=== PATIENT | male | born 1955 | race African-American/Black ===

== ENCOUNTER 2018-02-28 17:38 | Emergency (ER) | payer OTHER ==
[~2018-02-28] VITALS: Ht 175.3 cm; Wt 75.0 kg
[2018-02-28 18:53] LABS: BASOPHILS % (AUTO) 0.2 % (0-1); EOSINOPHILS # (AUTO) 0.2 X10'3 (0-0.9); EOSINOPHILS % (AUTO) 1.3 % (0-6); HEMATOCRIT 43.3 % (42.0-52.0); LYMPHOCYTES % (AUTO) 8.3 % (21-51); MEAN CORPUSCULAR HGB CONC 34.5 % (33.0-36.5); MEAN CORPUSCULAR VOLUME 89.7 FL (78-98); MEAN PLATELET VOLUME 7.6 FL (7.4-10.4); MONOCYTES # (AUTO) 0.9 X10'3 (0-0.9); MONOCYTES % (AUTO) 7.1 % (2-12); NEUTROPHILS # (AUTO) 10.1 X10'3 (1.8-7.7); NEUTROPHILS % (AUTO) 83.1 % (42-75); PLATELET COUNT 226 X10'3 (140-440); RED BLOOD COUNT 4.83 X10'6 (4.70-6.10); RED CELL DISTRIBUTION WIDTH 13.7 % (11.5-14.5); WHITE BLOOD COUNT 12.1 X10'3 (4.5-11.0)
[2018-02-28 19:09] LABS: ALANINE AMINOTRANSFERASE 57 U/L (12-78); ALBUMIN 3.8 G/DL (3.4-5.0); ALBUMIN/GLOBULIN RATIO 0.8 (1.1-1.5); ALKALINE PHOSPHATASE 95 IU/L (46-116); ANION GAP 8 (8-16); ASPARTATE AMINO TRANSFERASE 38 U/L (10-37); BILIRUBIN,TOTAL 0.7 MG/DL (0.1-1.0); BLOOD UREA NITROGEN 23 MG/DL (7-18); CALCIUM 9.2 MG/DL (8.5-10.1); CHLORIDE 108 MMOL/L (99-107); CREATININE 1.28 MG/DL (0.60-1.10); GLUCOSE 81 MG/DL (70-104); POTASSIUM 4.2 MMOL/L (3.5-5.1); SODIUM 144 MMOL/L (135-145); TOTAL CARBON DIOXIDE 27.7 MMOL/L (24-32); TOTAL PROTEIN 8.3 G/DL (6.4-8.2); eGFR 69 ML/MIN
[2018-02-28 19:21] LABS: CKMB RELATIVE INDEX 0.7 RATIO (0-2.5); CREATINE KINASE 201 U/L (39-308); ETHANOL < 0.010 GM/DL (0.0-0.010); MAGNESIUM 2.1 MG/DL (1.5-2.4)
[2018-02-28 20:07] VITALS: BP 154/72
== END 2018-02-28 20:09 | disposition home or self-care (01) ==
LOC: ER 17:38
DX: E86.0 Dehydration (principal); T67.5XXA Heat exhaustion, unspecified, initial encounter; Z88.0 Allergy status to penicillin; Y92.9 Unspecified place or not applicable
CPT/HCPCS: 36415; 80053; 80320; 82550; 82553; 83735; 84484; 85025; 93005; 99285

== ENCOUNTER 2020-11-25 20:00 | Emergency (ER) | payer OTHER ==
[~2020-11-25] VITALS: Ht 175.3 cm; Wt 78.2 kg
[2020-11-25 20:46] LABS: BASOPHILS % (AUTO) 0.5 % (0-1); EOSINOPHILS # (AUTO) 0.1 X10'3 (0-0.9); HEMOGLOBIN 14.9 g/dl (14.0-17.9); LYMPHOCYTES # (AUTO) 2.1 X10'3 (1.1-4.8); LYMPHOCYTES % (AUTO) 33.7 % (21-51); MEAN CORPUSCULAR HEMOGLOBIN 30.2 PG (27.0-31.0); MEAN CORPUSCULAR HGB CONC 33.8 g/dL (33.0-36.5); MEAN CORPUSCULAR VOLUME 89.3 FL (78-98); MEAN PLATELET VOLUME 7.7 FL (7.4-10.4); MONOCYTES # (AUTO) 0.6 X10'3 (0-0.9); MONOCYTES % (AUTO) 10.3 % (2-12); NEUTROPHILS # (AUTO) 3.3 X10'3 (1.8-7.7); NEUTROPHILS % (AUTO) 53.5 % (42-75); PLATELET COUNT 241 X10'3 (140-440); RED BLOOD COUNT 4.93 X10'6 (4.70-6.10); RED CELL DISTRIBUTION WIDTH 13.6 % (11.5-14.5); WHITE BLOOD COUNT 6.2 X10'3 (4.5-11.0)
[2020-11-25 20:55] LABS: ALANINE AMINOTRANSFERASE 54 U/L (12-78); ALBUMIN 3.7 G/DL (3.4-5.0); ALBUMIN/GLOBULIN RATIO 0.8 (1.1-1.5); ALKALINE PHOSPHATASE 96 IU/L (46-116); ANION GAP 10 (8-16); ASPARTATE AMINO TRANSFERASE 41 U/L (10-37); BILIRUBIN,TOTAL 0.4 MG/DL (0.1-1.0); BLOOD UREA NITROGEN 25 MG/DL (7-18); BUN/CREATININE RATIO 23.1 (5.4-32.0); CALCIUM 9.2 MG/DL (8.5-10.1); CHLORIDE 105 MMOL/L (99-107); CREATININE 1.08 MG/DL (0.60-1.10); GLUCOSE 95 MG/DL (70-104); LIPASE 72 U/L (73-393); POTASSIUM 3.9 MMOL/L (3.5-5.1); SODIUM 140 MMOL/L (135-145); TOTAL CARBON DIOXIDE 25.5 MMOL/L (24-32); TOTAL PROTEIN 8.5 G/DL (6.4-8.2); eGFR 83 ML/MIN
[2020-11-25 21:26] LABS: CLARITY,URINE CLEAR (Clear); COLOR,URINE YELLOW (Yellow); GLUCOSE, URINE NEGATIVE (Neg); KETONES,URINE NEGATIVE (Neg); LEUKOCYTE ESTERASE ,URINE NEGATIVE (Neg); NITRITES, URINE NEGATIVE (Neg); OCCULT BLOOD,URINE NEGATIVE (Neg); PROTEIN,URINE NEGATIVE (Neg); UROBILINOGEN,URINE 0.2 E.U/dL (0.2-1.0)
[2020-11-25 21:29] LABS: UA COLLECTION TYPE CLN CATCH MIDSTREAM
[2020-11-25 23:18] VITALS: BP 150/101
== END 2020-11-25 23:32 | disposition home or self-care (01) ==
LOC: ER 20:00
DX: R10.84 Generalized abdominal pain (principal); Z88.0 Allergy status to penicillin
CPT/HCPCS: 36415; 80053; 81003; 83690; 85025; 99283

== ENCOUNTER 2021-04-25 15:12 | Emergency (ER) | payer MEDICAID ==
[~2021-04-25] VITALS: Ht 175.3 cm; Wt 75.0 kg
[2021-04-25 15:37] VITALS: BP 142/75
[2021-04-25] MEDS ORDERED: FLUT1DIS INH (16:17)
[2021-04-25] MEDS ORDERED: ALBU8.5H17 INH (16:17)
== END 2021-04-25 17:09 | disposition home or self-care (01) ==
LOC: ER 15:12
DX: J44.9 Chronic obstructive pulmonary disease, unspecified (principal); R06.02 Shortness of breath; F17.200 Nicotine dependence, unspecified, uncomplicated; Z72.89 Other problems related to lifestyle; Z56.0 Unemployment, unspecified; Z59.0 Homelessness; Z88.0 Allergy status to penicillin; Z79.899 Other long term (current) drug therapy
CPT/HCPCS: 99283

== ENCOUNTER 2021-05-03 18:02 | Emergency (ER) | payer MEDICAID ==
[~2021-05-03] VITALS: Ht 175.3 cm; Wt 75.0 kg
[~2021-05-03 18:02] MED LIST: ALBU8.5H17 INH; FLUT1DIS INH
[2021-05-03] MEDS ORDERED: nitroGLYCERIN 0.4mg SUBLingual tab SL ONE (18:40)
[2021-05-03] MEDS ORDERED: albuterol 2.5 MG/3 ML nebule NEB ONE (18:40)
[2021-05-03] MEDS ORDERED: methylPREDNISolone sod succ 125mg/2ml vial IV ONE (18:40)
[2021-05-03 18:46] LABS: BASOPHILS % (AUTO) 0.4 % (0-1); EOSINOPHILS # (AUTO) 0.2 X10'3 (0-0.9); EOSINOPHILS % (AUTO) 4.1 % (0-6); HEMATOCRIT 35.3 % (42.0-52.0); HEMOGLOBIN 12.2 g/dl (14.0-17.9); LYMPHOCYTES # (AUTO) 1.3 X10'3 (1.1-4.8); LYMPHOCYTES % (AUTO) 23.9 % (21-51); MEAN CORPUSCULAR HEMOGLOBIN 31.3 PG (27.0-31.0); MEAN CORPUSCULAR HGB CONC 34.6 g/dL (33.0-36.5); MEAN CORPUSCULAR VOLUME 90.4 FL (78-98); MEAN PLATELET VOLUME 7.6 FL (7.4-10.4); MONOCYTES # (AUTO) 0.6 X10'3 (0-0.9); MONOCYTES % (AUTO) 10.3 % (2-12); NEUTROPHILS # (AUTO) 3.4 X10'3 (1.8-7.7); NEUTROPHILS % (AUTO) 61.3 % (42-75); PLATELET COUNT 227 X10'3 (140-440); RED CELL DISTRIBUTION WIDTH 13.4 % (11.5-14.5); WHITE BLOOD COUNT 5.6 X10'3 (4.5-11.0)
[2021-05-03 19:06] LABS: D-DIMER 1.09 MG/L FEU (0-0.50)
[2021-05-03 19:09] LABS: ALANINE AMINOTRANSFERASE 73 U/L (12-78); ALBUMIN/GLOBULIN RATIO 0.7 (1.1-1.5); ALKALINE PHOSPHATASE 84 IU/L (46-116); ANION GAP 9 (8-16); ASPARTATE AMINO TRANSFERASE 51 U/L (10-37); BILIRUBIN,TOTAL 0.5 MG/DL (0.1-1.0); BLOOD UREA NITROGEN 21 MG/DL (7-18); BUN/CREATININE RATIO 17.2 (5.4-32.0); CALCIUM 8.3 MG/DL (8.5-10.1); CHLORIDE 110 MMOL/L (99-107); CREATININE 1.22 MG/DL (0.60-1.10); GLUCOSE 97 MG/DL (70-104); POTASSIUM 3.3 MMOL/L (3.5-5.1); SODIUM 145 MMOL/L (135-145); TOTAL CARBON DIOXIDE 25.9 MMOL/L (24-32); TOTAL PROTEIN 7.1 G/DL (6.4-8.2); eGFR 72 ML/MIN
[2021-05-03] MEDS ORDERED: iohexol 350MG/ML 100ml bottle IV ONE (19:27)
[2021-05-03] MEDS ORDERED: POTASSIUM BICARB 20meq eff tab 20 MEQ TABLET.EFF PO ONE (20:35)
[2021-05-03 22:12] LABS: CLARITY,URINE CLEAR (Clear); COLOR,URINE DARK YELLOW (Yellow); PROTEIN,URINE 30 mg/dl (Neg); UA COLLECTION TYPE URINAL
[2021-05-03 22:13] LABS: GLUCOSE, URINE NEGATIVE (Neg); KETONES,URINE NEGATIVE (Neg); LEUKOCYTE ESTERASE ,URINE NEGATIVE (Neg); NITRITES, URINE NEGATIVE (Neg); OCCULT BLOOD,URINE NEGATIVE (Neg); UROBILINOGEN,URINE 0.2 E.U/dL (0.2-1.0)
[2021-05-03 22:19] LABS: BACTERIA,URINE NONE SEEN /HPF (Neg); HYALINE CASTS 0-3 /LPF (NEGATIVE); MUCUS STRANDS MODERATE /LPF (Neg); RBC,URINE NONE SEEN /HPF (0-2); SPERM FEW /HPF (NEGATIVE); SQUAMOUS EPITHELIAL CELL,UR NONE SEEN /LPF (FEW); WBC,URINE 0-4 /HPF (0-4)
[2021-05-03 22:38] LABS: URINE AMPHETAMINE SCREEN POSITIVE (Neg); URINE BARBITUATE SCREEN NEGATIVE (Neg); URINE BENZODIAZEPINES SCREEN NEGATIVE (Neg); URINE CANNABINOID SCREEN NEGATIVE (Neg); URINE COCAINE SCREEN NEGATIVE (Neg); URINE METHADONE SCREEN NEGATIVE (Neg); URINE OPIATE SCREEN NEGATIVE (Neg); URINE PHENCYCLIDINE SCREEN NEGATIVE (Neg)
[2021-05-03] MEDS ORDERED: PRED10TA23 PO (22:48)
[2021-05-03 23:11] VITALS: BP 136/81
== END 2021-05-03 23:12 | disposition home or self-care (01) ==
LOC: ER 18:02
DX: J44.1 Chronic obstructive pulmonary disease with (acute) exacerbation (principal); I10 Essential (primary) hypertension; Z56.0 Unemployment, unspecified; Z59.0 Homelessness; Z88.0 Allergy status to penicillin; Z79.899 Other long term (current) drug therapy; Z20.822 Contact with and (suspected) exposure to COVID-19
CPT/HCPCS: 36415; 71045; 71275; 80053; 80305; 81001; 83880; 84484; 85025; 85379; 87635; 93005; 94640; 96374; 99285; C9803; J2930; Q9967; 94760

== ENCOUNTER 2021-07-08 15:08 | Inpatient (IN) | payer MEDICAID, OTHER ==
[~2021-07-08] VITALS: Ht 172.7 cm; Wt 70.9 kg
[2021-07-08] MEDS ORDERED: aspirin 81mg tab.chew PO ONE (15:25)
[2021-07-08] MEDS ORDERED: nitroGLYCERIN 0.4mg SUBLingual tab SL PRN ×2 (15:25→20:35)
[2021-07-08 15:37] LABS: BASOPHILS % (AUTO) 0.6 % (0-1); EOSINOPHILS # (AUTO) 0.4 X10'3 (0-0.9); EOSINOPHILS % (AUTO) 7.9 % (0-6); HEMATOCRIT 41.2 % (42.0-52.0); HEMOGLOBIN 14.2 g/dl (14.0-17.9); LYMPHOCYTES # (AUTO) 1.4 X10'3 (1.1-4.8); LYMPHOCYTES % (AUTO) 27.9 % (21-51); MEAN CORPUSCULAR HEMOGLOBIN 30.9 PG (27.0-31.0); MEAN CORPUSCULAR HGB CONC 34.4 g/dL (33.0-36.5); MEAN CORPUSCULAR VOLUME 89.7 FL (78-98); MEAN PLATELET VOLUME 7.8 FL (7.4-10.4); MONOCYTES # (AUTO) 0.6 X10'3 (0-0.9); MONOCYTES % (AUTO) 10.9 % (2-12); NEUTROPHILS # (AUTO) 2.7 X10'3 (1.8-7.7); NEUTROPHILS % (AUTO) 52.7 % (42-75); PLATELET COUNT 216 X10'3 (140-440); RED BLOOD COUNT 4.59 X10'6 (4.70-6.10); RED CELL DISTRIBUTION WIDTH 12.9 % (11.5-14.5); WHITE BLOOD COUNT 5.2 X10'3 (4.5-11.0)
[2021-07-08 15:40] LABS: D-DIMER 1.13 MG/L FEU (0-0.50)
[2021-07-08 15:47] LABS: ALANINE AMINOTRANSFERASE 60 U/L (12-78); ALBUMIN 3.8 G/DL (3.4-5.0); ALBUMIN/GLOBULIN RATIO 0.9 (1.1-1.5); ALKALINE PHOSPHATASE 81 IU/L (46-116); ANION GAP 6 (8-16); ASPARTATE AMINO TRANSFERASE 41 U/L (10-37); BILIRUBIN,TOTAL 0.7 MG/DL (0.1-1.0); BLOOD UREA NITROGEN 14 MG/DL (7-18); BUN/CREATININE RATIO 10.9 (5.4-32.0); CALCIUM 8.8 MG/DL (8.5-10.1); CHLORIDE 105 MMOL/L (99-107); CREATININE 1.28 MG/DL (0.60-1.10); GLUCOSE 81 MG/DL (70-104); POTASSIUM 4.3 MMOL/L (3.5-5.1); SODIUM 141 MMOL/L (135-145); TOTAL CARBON DIOXIDE 30.1 MMOL/L (24-32); TOTAL PROTEIN 8.1 G/DL (6.4-8.2); eGFR 68 ML/MIN
[2021-07-08 15:52] LABS: MAGNESIUM 2.1 MG/DL (1.5-2.4)
[2021-07-08] MEDS ORDERED: normal saline 1000ML IV soln IVB ONE (16:15)
[2021-07-08 16:17] LABS: CHOL/HDL RATIO 2.7 (0.00-4.99); CHOLESTEROL 110 MG/DL (0-200); HDL CHOLESTEROL 41 MG/DL (35-60); LDL CHOLESTEROL 54 MG/DL (50-100); TRIGLYCERIDES 100 MG/DL (20-135)
[2021-07-08] MEDS ORDERED: iohexol 350MG/ML 100ml bottle IV ONE (16:48)
[2021-07-08 19:00] VITALS: BP 121/65
[2021-07-08] MEDS ORDERED: aminophylline 250mg/10ml inj. IV PRN (20:35)
[2021-07-08] MEDS ORDERED: magnesium Cl slow-release 64mg tablet PO PRN (20:35)
[2021-07-08] MEDS ORDERED: potassium CL 10mEq/100ml bag 100 ML IV PRN (20:35)
[2021-07-08] MEDS ORDERED: magnesium 4gm in 100ml NS 100 ML IV PRN (20:35)
[2021-07-08] MEDS ORDERED: morphine 2 MG/ML inj. syringe IV PRN (20:35)
[2021-07-08] MEDS ORDERED: metoprolol tartrate 1mg/ml inj IV PRN (20:35)
[2021-07-08] MEDS ORDERED: regadenoson 0.4mg/5ml syringe IV ONE (20:35)
[2021-07-08] MEDS ORDERED: magnesium 2GM in 50ml NS 50 ML IV PRN (20:35)
[2021-07-08] MEDS ORDERED: potassium Cl 20 mEq SR tablet PO PRN ×2 (20:35)
[2021-07-08] MEDS ORDERED: mag hydrox/Alum hydrox/simeth 30ml oral suspension PO PRN (20:35)
[2021-07-08] MEDS ORDERED: acetaminophen 325mg tablet PO PRN ×2 (20:35)
[2021-07-08] MEDS ORDERED: HYDROcodone/acetaminophen 5mg/325mg tablet PO PRN (20:35)
[2021-07-08] MEDS ORDERED: ondansetron/PF 4mg/2ml inj IV PRN (20:35)
[2021-07-08] MEDS ORDERED: albuterol 2.5 MG/3 ML nebule NEB PRN (20:40)
[2021-07-08] MEDS ORDERED: temazepam 15mg capsule PO PRN (21:00)
[2021-07-08] MEDS: levoFLOXACIN 250mg tablet PO SCH (22:57)
[2021-07-08] MEDS: normal saline 1000ml 1,000 ML IV SCH (23:00)
[2021-07-09] VITALS (17 sets, daily range): BP systolic 113–165; BP diastolic 63–96
[2021-07-09 03:46] LABS: BASOPHILS % (AUTO) 0.5 % (0-1); EOSINOPHILS # (AUTO) 0.3 X10'3 (0-0.9); EOSINOPHILS % (AUTO) 7.5 % (0-6); HEMATOCRIT 39.6 % (42.0-52.0); HEMOGLOBIN 13.5 g/dl (14.0-17.9); LYMPHOCYTES # (AUTO) 1.8 X10'3 (1.1-4.8); LYMPHOCYTES % (AUTO) 39.1 % (21-51); MEAN CORPUSCULAR HEMOGLOBIN 30.8 PG (27.0-31.0); MEAN CORPUSCULAR VOLUME 90.6 FL (78-98); MEAN PLATELET VOLUME 7.8 FL (7.4-10.4); MONOCYTES # (AUTO) 0.5 X10'3 (0-0.9); MONOCYTES % (AUTO) 10.9 % (2-12); NEUTROPHILS # (AUTO) 1.9 X10'3 (1.8-7.7); PLATELET COUNT 179 X10'3 (140-440); RED BLOOD COUNT 4.38 X10'6 (4.70-6.10); RED CELL DISTRIBUTION WIDTH 13.3 % (11.5-14.5); WHITE BLOOD COUNT 4.5 X10'3 (4.5-11.0)
[2021-07-09 04:03] LABS: ALANINE AMINOTRANSFERASE 53 U/L (12-78); ALBUMIN 3.1 G/DL (3.4-5.0); ALBUMIN/GLOBULIN RATIO 0.8 (1.1-1.5); ALKALINE PHOSPHATASE 75 IU/L (46-116); ANION GAP 8 (8-16); ASPARTATE AMINO TRANSFERASE 36 U/L (10-37); BILIRUBIN,TOTAL 0.4 MG/DL (0.1-1.0); BLOOD UREA NITROGEN 16 MG/DL (7-18); BUN/CREATININE RATIO 14.5 (5.4-32.0); CALCIUM 8.3 MG/DL (8.5-10.1); CHLORIDE 107 MMOL/L (99-107); GLUCOSE 88 MG/DL (70-104); POTASSIUM 4.1 MMOL/L (3.5-5.1); SODIUM 141 MMOL/L (135-145); TOTAL CARBON DIOXIDE 25.8 MMOL/L (24-32); TOTAL PROTEIN 7.1 G/DL (6.4-8.2); eGFR 82 ML/MIN
[2021-07-09 04:06] LABS: CHOL/HDL RATIO 2.9 (0.00-4.99); CHOLESTEROL 100 MG/DL (0-200); HDL CHOLESTEROL 34 MG/DL (35-60); LDL CHOLESTEROL 49 MG/DL (50-100); TRIGLYCERIDES 106 MG/DL (20-135)
[2021-07-09] MEDS: normal saline 1000ml 1,000 ML IV SCH ×3 (06:49→20:08)
[2021-07-09] MEDS: K and/or MAG REPLACEMENT MC SCH ×2 (08:00→19:08)
--- NOTE | 2021-07-09 08:05 | NUR ---
RECEIVED REPORT FROM CHRISTIANO MENDOZA. PT ARRIVED TO RM 3010. PT AMBULATED FROM [facility] IN [address] TO BED. VS TAKEN WNL. WAITING FOR CARDIAC STRESS TEST.
[2021-07-09] MEDS ORDERED: regadenoson 0.4mg/5ml syringe IV PRN (08:55)
[2021-07-09] MEDS: levoFLOXACIN 250mg tablet PO SCH (11:28)
[2021-07-09] MEDS: pantoprazole 40mg Tablet.DR PO SCH (11:28)
[2021-07-09] MEDS: heparin, porcine 5000 units/ml vial SQ SCH ×2 (11:29→20:07)
[2021-07-09] MEDS ORDERED: nitroGLYCERIN-Tridil 50MG/D5W 250 ML IV ONE (11:56)
[2021-07-09] MEDS ORDERED: fentaNYL/PF 50MCG/1 ML 2ML syringe ONE (11:57)
[2021-07-09] MEDS ORDERED: midazolam 1 mg/ML 2ml injection ONE (11:57)
[2021-07-09] MEDS ORDERED: iohexol 350 MG/ML 50ML vial IV ONE ×3 (11:57→12:58)
[2021-07-09] MEDS ORDERED: iohexol 350MG/ML 100ml bottle IV ONE (11:57)
[2021-07-09] MEDS ORDERED: heparin 1,000unit/ml 10ml vial 10 ML ONE (11:57)
[2021-07-09] MEDS ORDERED: LIDOcaine 1% (10mg/ml)w/preservative injection 20ml MDV ONE (11:57)
--- NOTE | 2021-07-09 12:18 | NUR ---
PT TO HISTOLOGICAL ILLUSTRATOR
[2021-07-09] MEDS ORDERED: normal saline 1000ml 1,000 ML IV SCH (13:55)
[2021-07-09] MEDS ORDERED: HYDROcodone/acetaminophen 10/325mg tab PO PRN (13:55)
[2021-07-09] MEDS ORDERED: nitroGLYCERIN 0.4mg SUBLingual tab SL PRN (13:55)
[2021-07-09] MEDS ORDERED: ondansetron/PF 4mg/2ml inj IV PRN (13:55)
[2021-07-09] MEDS ORDERED: HYDROcodone/acetaminophen 5mg/325mg tablet PO PRN (13:55)
[2021-07-09] MEDS ORDERED: OXAZEpam 15mg capsule PO PRN (13:55)
[2021-07-09] MEDS ORDERED: proCHLORperazine 10 MG/2 ml inj IV PRN (13:55)
[2021-07-09] MEDS ORDERED: MESSAGE TO NURSING PO ONE ×4 (14:15)
[2021-07-09] MEDS ORDERED: ringers solution, lacted 1,000 ML IV ONE (14:55)
[2021-07-09 14:56] LABS: HEMOGLOBIN A1C 5.7 % (4.5-6.2)
[2021-07-09 15:14] LABS: PARTIAL THROMBOPLASTIN TIME 33 SECONDS (22-32)
[2021-07-09] MEDS ORDERED: AMLO2.5T2 PO (15:34)
[2021-07-09] MEDS ORDERED: OMEP40CA21 PO (15:34)
[2021-07-09] MEDS ORDERED: ATOR20TA PO (15:34)
--- NOTE | 2021-07-09 15:36 | NUR ---
PAGED: Yeison Tellez [id number]: MED REC IS READY TO FOR YOU TO REVIEW. THANKS [id number]
[2021-07-09] MEDS ORDERED: AMLO5TAB PO (15:40)
[2021-07-09] MEDS ORDERED: ALBU8HFA PO (15:40)
[2021-07-09] MEDS ORDERED: FLUT1DIS INH (15:40)
[2021-07-09 17:07] LABS: CLARITY,URINE CLEAR (Clear); COLOR,URINE YELLOW (Yellow); GLUCOSE, URINE NEGATIVE (Neg); KETONES,URINE NEGATIVE (Neg); LEUKOCYTE ESTERASE ,URINE NEGATIVE (Neg); NITRITES, URINE NEGATIVE (Neg); OCCULT BLOOD,URINE NEGATIVE (Neg); PH,URINE 6.5 (4.8-8.0); PROTEIN,URINE NEGATIVE (Neg); UROBILINOGEN,URINE 0.2 E.U/dL (0.2-1.0)
[2021-07-09] MEDS: albuterol 2.5 MG/3 ML nebule NEB PRN (17:09)
[2021-07-09 17:19] LABS: UA COLLECTION TYPE CLN CATCH MIDSTREAM
--- NOTE | 2021-07-09 18:41 | NUR ---
Problems reprioritized. Patient report given, questions answered & plan of care reviewed with MELISSA RN.
[2021-07-09] MEDS: albuterol 2.5 MG/3 ML nebule NEB SCH (18:48)
[2021-07-09] MEDS: budesonide 0.5mg/2ml UD nebule IH SCH (18:48)
[2021-07-09] MEDS: atorvastatin 20mg tablet PO SCH (20:07)
[2021-07-10] MEDS: albuterol 2.5 MG/3 ML nebule NEB SCH ×4 (02:30→18:54)
[2021-07-10 03:00] VITALS: BP 136/74
[2021-07-10 06:00] VITALS: BP 133/76
[2021-07-10] MEDS ORDERED: famotidine 20mg tablet PO ONE (06:00)
[2021-07-10] MEDS ORDERED: LORazepam 2 mg/ml vial IV ONE (06:00)
[2021-07-10 06:36] LABS: BASOPHILS % (AUTO) 0.5 % (0-1); EOSINOPHILS # (AUTO) 0.3 X10'3 (0-0.9); EOSINOPHILS % (AUTO) 5.8 % (0-6); HEMATOCRIT 39.3 % (42.0-52.0); HEMOGLOBIN 13.3 g/dl (14.0-17.9); LYMPHOCYTES # (AUTO) 1.4 X10'3 (1.1-4.8); LYMPHOCYTES % (AUTO) 27.1 % (21-51); MEAN CORPUSCULAR HEMOGLOBIN 30.6 PG (27.0-31.0); MEAN CORPUSCULAR HGB CONC 33.8 g/dL (33.0-36.5); MEAN CORPUSCULAR VOLUME 90.4 FL (78-98); MEAN PLATELET VOLUME 8.1 FL (7.4-10.4); MONOCYTES # (AUTO) 0.5 X10'3 (0-0.9); MONOCYTES % (AUTO) 9.4 % (2-12); NEUTROPHILS % (AUTO) 57.2 % (42-75); PLATELET COUNT 198 X10'3 (140-440); RED BLOOD COUNT 4.34 X10'6 (4.70-6.10); WHITE BLOOD COUNT 5.2 X10'3 (4.5-11.0)
[2021-07-10 07:04] LABS: ALANINE AMINOTRANSFERASE 46 U/L (12-78); ALBUMIN 3.2 G/DL (3.4-5.0); ALBUMIN/GLOBULIN RATIO 0.9 (1.1-1.5); ALKALINE PHOSPHATASE 75 IU/L (46-116); ANION GAP 10 (8-16); ASPARTATE AMINO TRANSFERASE 39 U/L (10-37); BILIRUBIN,TOTAL 0.5 MG/DL (0.1-1.0); BLOOD UREA NITROGEN 18 MG/DL (7-18); BUN/CREATININE RATIO 14.6 (5.4-32.0); CALCIUM 8.7 MG/DL (8.5-10.1); CHLORIDE 107 MMOL/L (99-107); CREATININE 1.23 MG/DL (0.60-1.10); GLUCOSE 93 MG/DL (70-104); POTASSIUM 3.7 MMOL/L (3.5-5.1); SODIUM 143 MMOL/L (135-145); TOTAL PROTEIN 6.9 G/DL (6.4-8.2); eGFR 72 ML/MIN
[2021-07-10] MEDS ORDERED: pantoprazole 40mg Tablet.DR PO SCH (07:30)
[2021-07-10] MEDS: K and/or MAG REPLACEMENT MC SCH ×2 (08:00→20:00)
[2021-07-10] MEDS: heparin, porcine 5000 units/ml vial SQ SCH ×2 (08:36→20:07)
[2021-07-10] MEDS: pantoprazole 40mg Tablet.DR PO SCH (08:36)
[2021-07-10] MEDS: levoFLOXACIN 250mg tablet PO SCH (08:36)
[2021-07-10] MEDS: budesonide 0.5mg/2ml UD nebule IH SCH ×2 (08:42→18:54)
[2021-07-10] MEDS ORDERED: neomycin/bacitracin/polymyxin B/HC top. ointment 15gm TP PRN (09:10)
[2021-07-10] MEDS ORDERED: neomy sulf/bacitrac zn/polymixin b oint 14.2 gm tube TP PRN (09:30)
[2021-07-10] MEDS ORDERED: MESSAGE TO NURSING PO ONE ×3 (10:00→19:35)
[2021-07-10 11:00] VITALS: BP 133/79
[2021-07-10] MEDS: normal saline 1000ml 1,000 ML IV SCH ×2 (12:35→22:35)
[2021-07-10 14:16] LABS: ABG BASE EXCESS -3.2 mmol/L (-2.0-2.0); ABG OXYGEN SATURATION 94.4 % (94-97); ABG PCO2 (T) 35.1 mmHg (35.0-48.0); ABG PO2 (T) 71.8 mmHg (75.0-100.0); ALLEN'S TEST POSITIVE; FCOHb 0.4 % (0.0-3.9); FMetHb 0.2 % (0.0-1.5); FO2Hb 93.8 % (94-97); TOTAL HEMOGLOBIN 14.4 G/dl (14.0-18.0)
[2021-07-10 15:00] VITALS: BP 116/75
[2021-07-10 18:00] VITALS: BP 150/82
--- NOTE | 2021-07-10 18:08 | NUR ---
Problems reprioritized. Patient report given, questions answered & plan of care reviewed with REJI Gonzalez.
--- NOTE | 2021-07-10 18:27 | NUR ---
Patient in room PCU 3010. I have received report from AKBAR MENDOZA and had the opportunity to ask questions and assume patient care.
[2021-07-10] MEDS ORDERED: dextrose 50%-water 50ml dispensing syringe IV PRN (19:35)
[2021-07-10] MEDS: sod chloride 0.9% 10ml flush syringe IV SCH (20:00)
[2021-07-10] MEDS: mupirocin 2% nasal ointment 1gm UD NS SCH (20:06)
[2021-07-10] MEDS: atorvastatin 20mg tablet PO SCH (20:06)
[2021-07-10] MEDS: metoprolol tartrate 12.5mg (1/2 tablet) PO SCH (20:10)
[2021-07-10 22:00] VITALS: BP 123/71
[2021-07-11] VITALS (16 sets, daily range): BP systolic 95–128; BP diastolic 61–84
[2021-07-11] MEDS ORDERED: MESSAGE TO NURSING PO ONE ×3 (01:30→05:30)
[2021-07-11] MEDS: albuterol 2.5 MG/3 ML nebule NEB SCH ×4 (03:06→21:22)
[2021-07-11 03:55] LABS: BASOPHILS % (AUTO) 0.3 % (0-1); EOSINOPHILS # (AUTO) 0.4 X10'3 (0-0.9); EOSINOPHILS % (AUTO) 6.6 % (0-6); HEMATOCRIT 42.3 % (42.0-52.0); HEMOGLOBIN 14.4 g/dl (14.0-17.9); LYMPHOCYTES # (AUTO) 1.4 X10'3 (1.1-4.8); LYMPHOCYTES % (AUTO) 25.3 % (21-51); MEAN CORPUSCULAR HEMOGLOBIN 30.8 PG (27.0-31.0); MEAN CORPUSCULAR HGB CONC 34.1 g/dL (33.0-36.5); MEAN CORPUSCULAR VOLUME 90.2 FL (78-98); MEAN PLATELET VOLUME 7.8 FL (7.4-10.4); MONOCYTES # (AUTO) 0.6 X10'3 (0-0.9); MONOCYTES % (AUTO) 9.8 % (2-12); NEUTROPHILS # (AUTO) 3.3 X10'3 (1.8-7.7); PLATELET COUNT 203 X10'3 (140-440); RED BLOOD COUNT 4.69 X10'6 (4.70-6.10); WHITE BLOOD COUNT 5.7 X10'3 (4.5-11.0)
[2021-07-11 04:08] LABS: ALANINE AMINOTRANSFERASE 57 U/L (12-78); ALBUMIN 3.4 G/DL (3.4-5.0); ALBUMIN/GLOBULIN RATIO 0.8 (1.1-1.5); ALKALINE PHOSPHATASE 77 IU/L (46-116); ANION GAP 9 (8-16); ASPARTATE AMINO TRANSFERASE 45 U/L (10-37); BILIRUBIN,TOTAL 0.8 MG/DL (0.1-1.0); BLOOD UREA NITROGEN 14 MG/DL (7-18); BUN/CREATININE RATIO 11.4 (5.4-32.0); CALCIUM 8.8 MG/DL (8.5-10.1); CHLORIDE 109 MMOL/L (99-107); CREATININE 1.23 MG/DL (0.60-1.10); GLUCOSE 106 MG/DL (70-104); POTASSIUM 3.6 MMOL/L (3.5-5.1); SODIUM 143 MMOL/L (135-145); TOTAL CARBON DIOXIDE 25.5 MMOL/L (24-32); TOTAL PROTEIN 7.7 G/DL (6.4-8.2); eGFR 72 ML/MIN
[2021-07-11] MEDS ORDERED: MALTODEXTRIN/FRUCTOSE 0.68 KCAL/ML LIQUID 296ML BOTTLE PO ONE (05:00)
[2021-07-11] MEDS ORDERED: vancomycin/NS 1 GM ADD-VANTAGE 250 ML IV ONE (05:30)
[2021-07-11] MEDS ORDERED: ceFAZolin inj. 3,000 MG in normal saline 100ml IV soln 100 ML IV ONE (05:30)
[2021-07-11] MEDS ORDERED: insulin glargine (Lantus) pen - multi-dose SQ PRN ×2 (05:30→13:00)
[2021-07-11] MEDS ORDERED: gabapentin 400mg capsule PO ONE (05:30)
[2021-07-11] MEDS ORDERED: cefazolin/dext.iso 2gm/50ml 50 ML IV ONE (05:30)
[2021-07-11] MEDS: mupirocin 2% nasal ointment 1gm UD NS SCH ×2 (05:30→20:27)
[2021-07-11] MEDS ORDERED: LORazepam 2 mg/ml vial IM ONE (05:35)
[2021-07-11] MEDS ORDERED: famotidine 20mg tablet PO SCH (05:50)
[2021-07-11] MEDS ORDERED: famotidine 10mg tablet PO SCH (05:50)
--- NOTE | 2021-07-11 06:50 | NUR ---
Problems reprioritized. Patient report given, questions answered & plan of care reviewed with AKBAR MENDOZA.
[2021-07-11] MEDS ORDERED: NORepinephrine 8 MG in NS 250 ML BAG (32 mcg/ml) IV ONE (07:27)
[2021-07-11] MEDS ORDERED: nitroGLYCERIN in D5W 50mg/250ml (Tridil) infusion IV ONE (07:27)
[2021-07-11] MEDS ORDERED: isoflurane 100ml inhalation liquid IH ONE (07:27)
[2021-07-11] MEDS ORDERED: DOPamine/D5W 400mg/250ml bag IV ONE (07:27)
[2021-07-11] MEDS ORDERED: SUFENTANIL CITRATE 50 MCG/ML 2ml ampule IV ONE (07:29)
--- NOTE | 2021-07-11 07:31 | NUR ---
CVOR will cut the ankle monitor off. Only way to proceed with surgery. Ativan administered and pt taken to CVOR. Called Herminia Glass to advise per pt request.
[2021-07-11] MEDS ORDERED: LORazepam 2 mg/ml vial ONE (07:38)
[2021-07-11] MEDS: pantoprazole 40mg Tablet.DR PO SCH (08:00)
[2021-07-11] MEDS: budesonide 0.5mg/2ml UD nebule IH SCH ×2 (08:00→21:22)
[2021-07-11] MEDS: metoprolol tartrate 12.5mg (1/2 tablet) PO SCH (08:00)
[2021-07-11] MEDS ORDERED: heparin 1,000 units/ml 10ml inj ONE (08:00)
[2021-07-11] MEDS ORDERED: MAGNESIUM SULFATE 4 MEQ/ML (5gm/10ml) injection ONE (08:00)
[2021-07-11] MEDS ORDERED: methylPREDNISolone sod succ 1000mg vial ONE (08:00)
[2021-07-11] MEDS ORDERED: aminocaproic acid 250 MG/1 ML inj. ONE (08:00)
[2021-07-11] MEDS ORDERED: potassium Cl 2 mEq/ml inj IV ONE (08:00)
[2021-07-11] MEDS: K and/or MAG REPLACEMENT MC SCH (08:00)
[2021-07-11] MEDS: sod chloride 0.9% 10ml flush syringe IV SCH (08:00)
[2021-07-11] MEDS ORDERED: NORepinephrine 1 mg/ml inj IV ONE (08:00)
[2021-07-11] MEDS ORDERED: albumin (human) 25% 100 ML IV solution IV ONE (08:00)
[2021-07-11] MEDS ORDERED: LIDOcaine 2% (20 mg/ml) 5ml cardiac syringe ONE (08:00)
[2021-07-11] MEDS ORDERED: heparin 10,000 units/1 ML INJ ONE (08:00)
[2021-07-11] MEDS: heparin, porcine 5000 units/ml vial SQ SCH (08:00)
[2021-07-11] MEDS ORDERED: calcium chloride 100 MG/1 ML inj IV ONE (08:00)
[2021-07-11] MEDS ORDERED: sodium bicarbonate (8.4%) 1 mEq/ml syringe ONE (08:00)
[2021-07-11] MEDS ORDERED: propofol inj 20 ML IV ONE (08:23)
[2021-07-11] MEDS ORDERED: LIDOcaine 2% (20mg/ml) 5ml vial ONE (08:23)
[2021-07-11] MEDS ORDERED: rocuronium 10mg/ml inj IV ONE (08:23)
[2021-07-11 08:27] LABS: ABG BASE EXCESS -0.2 mmol/L (-2.0-2.0); ABG OXYGEN SATURATION 99.1 % (94-97); ABG PO2 147.9 mmHg (75.0-100.0); CL (ABG) 107 mmol/L (98-110); FCOHb 0.7 % (0.0-3.9); FMetHb 0.3 % (0.0-1.5); FO2Hb 98.1 % (94-97); GLUCOSE (ABG) 78 mg/dl (70-105); IONIZED CA (ABG) 1.18 mmol/L (1.10-1.43); K (ABG) 3.8 mmol/L (3.5-5.0); TOTAL HEMOGLOBIN 13.5 G/dl (14.0-18.0)
[2021-07-11] MEDS ORDERED: papaverine 30 mg/ml 2ml inj. IA ONE (08:41)
[2021-07-11] MEDS ORDERED: heparin 10,000 units/1 ML INJ IR ONE (08:41)
[2021-07-11 09:31] LABS: ABG BASE EXCESS 0.2 mmol/L (-2.0-2.0); ABG HCO3 24.5 mmol/L (22.0-26.0); ABG OXYGEN SATURATION 99.7 % (94-97); ABG PCO2 38.1 mmHg (35.0-48.0); ABG PO2 531.7 mmHg (75.0-100.0); CL (ABG) 104 mmol/L (98-110); FCOHb 0.3 % (0.0-3.9); FMetHb 0.3 % (0.0-1.5); FO2Hb 99.1 % (94-97); GLUCOSE (ABG) 116 mg/dl (70-105); IONIZED CA (ABG) 1.08 mmol/L (1.10-1.43); K (ABG) 4.7 mmol/L (3.5-5.0); TOTAL HEMOGLOBIN 9.8 G/dl (14.0-18.0)
[2021-07-11] MEDS ORDERED: CISatracurium **Bolus** 2 mg/ml inj IV ONE (09:43)
[2021-07-11 09:58] LABS: ABG BASE EXCESS VENOUS -2.2 mmol/L (-2.0 - 2.0); ABG HCO3 VENOUS 22.7 mmol/L (21.0-28.0); ABG PCO2 VENOUS 38.9 mmHg (41.0-54.0); ABG PO2 VENOUS 54.5 mmHg (25.0-35.0); CL (ABG) 105 mmol/L (98-110); FCOHb VENOUS 0.4 %; FHHb VENOUS 13.5 %; FMetHb VENOUS 0.3 % (0.0 - 0.5); FO2Hb VENOUS 85.8 %; GLUCOSE (ABG) 133 mg/dl (70-105); IONIZED CA (ABG) 1.11 mmol/L (1.10-1.43); K (ABG) 4.6 mmol/L (3.5-5.0); TOTAL HEMOGLOBIN 10.1 G/dl (14.0-18.0)
[2021-07-11] MEDS ORDERED: ipratropium/albuterol 3ml nebule IH PRN (10:20)
[2021-07-11 10:38] LABS: ABG BASE EXCESS -2.9 mmol/L (-2.0-2.0); ABG HCO3 22.9 mmol/L (22.0-26.0); ABG OXYGEN SATURATION 99.3 % (94-97); ABG PCO2 44.1 mmHg (35.0-48.0); CL (ABG) 107 mmol/L (98-110); FCOHb 0.3 % (0.0-3.9); FMetHb 0.3 % (0.0-1.5); FO2Hb 98.7 % (94-97); GLUCOSE (ABG) 170 mg/dl (70-105); IONIZED CA (ABG) 1.12 mmol/L (1.10-1.43); K (ABG) 4.8 mmol/L (3.5-5.0); TOTAL HEMOGLOBIN 10.4 G/dl (14.0-18.0)
--- NOTE | 2021-07-11 11:11 | NUR ---
Noted pt s/p CABG this AM per EMR. Would benefit from written/verbal CABG ed once more appropriate post-op. Addendum: 07/11/21 at [address] Amended: Links added.
[2021-07-11 11:37] LABS: ABG BASE EXCESS 3.3 mmol/L (-2.0-2.0); ABG OXYGEN SATURATION 99.4 % (94-97); ABG PCO2 43.2 mmHg (35.0-48.0); CL (ABG) 106 mmol/L (98-110); FCOHb 0.3 % (0.0-3.9); FMetHb 0.3 % (0.0-1.5); FO2Hb 98.8 % (94-97); GLUCOSE (ABG) 141 mg/dl (70-105); IONIZED CA (ABG) 1.56 mmol/L (1.10-1.43); K (ABG) 4.4 mmol/L (3.5-5.0); TOTAL HEMOGLOBIN 8.9 G/dl (14.0-18.0)
[2021-07-11 12:21] LABS: ABG BASE EXCESS -2.1 mmol/L (-2.0-2.0); ABG HCO3 21.8 mmol/L (22.0-26.0); ABG OXYGEN SATURATION 94.2 % (94-97); ABG PCO2 34.1 mmHg (35.0-48.0); ABG PO2 73.6 mmHg (75.0-100.0); CL (ABG) 108 mmol/L (98-110); FCOHb 0.3 % (0.0-3.9); FMetHb 0.3 % (0.0-1.5); FO2Hb 93.6 % (94-97); GLUCOSE (ABG) 109 mg/dl (70-105); IONIZED CA (ABG) 1.26 mmol/L (1.10-1.43); K (ABG) 3.7 mmol/L (3.5-5.0); TOTAL HEMOGLOBIN 10.9 G/dl (14.0-18.0)
[2021-07-11 12:24] LABS: ACTIVATED CLOTTING TIME 137 SEC (101-148)
[2021-07-11] MEDS ORDERED: niCARDipine-NS 40mg/200ml IVPB 200 ML IV PRN (13:00)
[2021-07-11] MEDS ORDERED: bisacodyl 10mg suppository rectal RC PRN (13:00)
[2021-07-11] MEDS ORDERED: nitroGLYCERIN-Tridil 50MG/D5W 250 ML IV PRN (13:00)
[2021-07-11] MEDS ORDERED: potassium phosphate inj 30 MMOL in dextrose 5%-water 250 ML IV PRN (13:00)
[2021-07-11] MEDS ORDERED: Insulin Reg/NS 100units/100mL 100 ML IV SCH (13:00)
[2021-07-11] MEDS ORDERED: potassium phosphate inj 15 MMOL in dextrose 5%-water 250 ML IV PRN (13:00)
[2021-07-11] MEDS ORDERED: mineral oil 133ml enema RC PRN (13:00)
[2021-07-11] MEDS ORDERED: magnesium citrate 296ml oral solution PO PRN (13:00)
[2021-07-11] MEDS ORDERED: dextrose 50%-water 50ml dispensing syringe IV PRN (13:00)
[2021-07-11] MEDS ORDERED: normal saline 250ml IV soln 250 ML IV PRN (13:00)
[2021-07-11] MEDS ORDERED: magnesium 4gm in 100ml NS 100 ML IV PRN (13:00)
[2021-07-11] MEDS ORDERED: metoclopramide 5 mg/ml inj IV PRN (13:00)
[2021-07-11] MEDS ORDERED: morphine 4 MG/ML inj SYRINge IV PRN (13:00)
[2021-07-11] MEDS ORDERED: magnesium hydroxide 30ml (MOM) UD suspension PO PRN (13:00)
[2021-07-11] MEDS ORDERED: ondansetron/PF 4mg/2ml inj IV PRN (13:00)
[2021-07-11] MEDS ORDERED: magnesium 2GM in 50ml NS 50 ML IV PRN (13:00)
[2021-07-11] MEDS ORDERED: potassium Cl 20 mEq SR tablet PO PRN (13:00)
[2021-07-11] MEDS ORDERED: Neutra Phos packet PO PRN (13:00)
[2021-07-11] MEDS ORDERED: potassium CL 10mEq/100ml bag 100 ML IV PRN (13:00)
[2021-07-11] MEDS ORDERED: acetaminophen 325mg tablet PO PRN ×2 (13:00)
[2021-07-11] MEDS ORDERED: potassium Cl 20mEq/100mL bag 100 ML IV PRN (13:00)
--- NOTE | 2021-07-11 13:30 | NUR ---
Received to room 2044, accompanied by Dr. Jeronimo, Dr. Klein and surgical crew. See assessment records. Katy/PAline/CVPline and IVs noted in IV assessment records. All sites without redness or swelling. Vasoactive drugs infusing per Central Line.
[2021-07-11 13:35] LABS: ABG BASE EXCESS -2.4 mmol/L (-2.0-2.0); ABG HCO3 22.4 mmol/L (22.0-26.0); ABG OXYGEN SATURATION 98.5 % (94-97); ABG PCO2 (T) 35.7 mmHg (35.0-48.0); ABG PO2 (T) 154.3 mmHg (75.0-100.0); FCOHb 0.3 % (0.0-3.9); FLOW 30 L/min; FMetHb 0.4 % (0.0-1.5); FO2Hb 97.8 % (94-97); PATIENT TEMPERATURE 35.2; PEEP 5 cm H2O; RESPIRATORY RATE 12 b/min; TIDAL VOLUME 600 mL; TOTAL HEMOGLOBIN 11.1 G/dl (14.0-18.0)
--- NOTE | 2021-07-11 13:48 | NUR ---
CABG Consult: Pt s/p CABG this AM per EMR. Would benefit from written/verbal CABG ed once more appropriate post-op. Addendum: 07/11/21 at [address] Amended: Links added.
[2021-07-11 13:53] LABS: BASOPHILS % (AUTO) 0.3 % (0-1); EOSINOPHILS # (AUTO) 0.1 X10'3 (0-0.9); EOSINOPHILS % (AUTO) 1.3 % (0-6); HEMATOCRIT 30.6 % (42.0-52.0); HEMOGLOBIN 10.5 g/dl (14.0-17.9); LYMPHOCYTES # (AUTO) 0.6 X10'3 (1.1-4.8); LYMPHOCYTES % (AUTO) 9.4 % (21-51); MEAN CORPUSCULAR HEMOGLOBIN 30.8 PG (27.0-31.0); MEAN CORPUSCULAR HGB CONC 34.2 g/dL (33.0-36.5); MEAN PLATELET VOLUME 8.1 FL (7.4-10.4); MONOCYTES # (AUTO) 0.5 X10'3 (0-0.9); MONOCYTES % (AUTO) 7.3 % (2-12); NEUTROPHILS # (AUTO) 5.3 X10'3 (1.8-7.7); NEUTROPHILS % (AUTO) 81.7 % (42-75); PLATELET COUNT 175 X10'3 (140-440); WHITE BLOOD COUNT 6.4 X10'3 (4.5-11.0)
[2021-07-11 14:02] LABS: PARTIAL THROMBOPLASTIN TIME 33 SECONDS (22-32)
[2021-07-11 14:03] LABS: ALANINE AMINOTRANSFERASE 38 U/L (12-78); ALBUMIN 2.8 G/DL (3.4-5.0); ALKALINE PHOSPHATASE 56 IU/L (46-116); ANION GAP 7 (8-16); ASPARTATE AMINO TRANSFERASE 49 U/L (10-37); BILIRUBIN,TOTAL 0.8 MG/DL (0.1-1.0); BLOOD UREA NITROGEN 14 MG/DL (7-18); BUN/CREATININE RATIO 12.7 (5.4-32.0); CALCIUM 8.7 MG/DL (8.5-10.1); CHLORIDE 113 MMOL/L (99-107); GLUCOSE 98 MG/DL (70-104); MAGNESIUM 3.4 MG/DL (1.5-2.4); PHOSPHORUS 1.4 MG/DL (2.3-4.5); POTASSIUM 3.7 MMOL/L (3.5-5.1); SODIUM 146 MMOL/L (135-145); TOTAL CARBON DIOXIDE 26.1 MMOL/L (24-32); TOTAL PROTEIN 5.6 G/DL (6.4-8.2); eGFR 82 ML/MIN
[2021-07-11] MEDS: sodium chloride 0.45% 1,000 ML IV SCH (14:20)
[2021-07-11] MEDS: albumin (Human) 5% 250ml 250 ML IV PRN ×2 (14:41→15:32)
[2021-07-11] MEDS: gabapentin 300mg capsule PO SCH ×2 (14:42→21:00)
[2021-07-11] MEDS: morphine 4 MG/ML inj SYRINge IV PRN ×3 (15:04→22:10)
[2021-07-11] MEDS: Insulin Reg/NS 100units/100mL 100 ML IV SCH (15:12)
[2021-07-11] MEDS: ceFAZolin/D5W- 1GM premix 50 ML IV SCH ×2 (16:17→23:59)
[2021-07-11] MEDS ORDERED: NORepinephrine inj. 8 MG in dextrose 5%-water 242 ML IV SCH (17:15)
[2021-07-11 17:25] LABS: ABG BASE EXCESS -6.3 mmol/L (-2.0-2.0); ABG HCO3 18.1 mmol/L (22.0-26.0); ABG OXYGEN SATURATION 96.5 % (94-97); ABG PCO2 (T) 32.8 mmHg (35.0-48.0); ABG PO2 (T) 100.9 mmHg (75.0-100.0); FCOHb 0.3 % (0.0-3.9); FMetHb 0.2 % (0.0-1.5); PATIENT TEMPERATURE 37.3; TIDAL VOLUME 560 mL; TOTAL HEMOGLOBIN 10.4 G/dl (14.0-18.0)
[2021-07-11] MEDS: NORepinephrine 8mg/ 250ml NS 250 ML IV SCH (17:25)
--- NOTE | 2021-07-11 17:30 | NUR ---
Drwosy but follows commands. Emerita spontaneous mode well without apnea. Weaning parameters: RSBI 57, NIF -21, VC 745, + cough leak. pH 7.36, pCO2 32.4, pO2 98.1. Extubated to 3L n/c. Emerita well. CI > 3 on Levo @ 0.015 mcg/kg/min. CT drainage decreased.
--- NOTE | 2021-07-11 18:15 | NUR ---
Problems reprioritized. Patient report given, questions answered & plan of care reviewed with Simi MENDOZA.
--- NOTE | 2021-07-11 18:31 | NUR ---
Patient in room ICU 2044. I have received report from June MENDOZA and had the opportunity to ask questions and assume patient care. Addendum: 07/11/21 at 1832 by Simi Richter RN Amended: Links added.
[2021-07-11] MEDS: sennosides/docusate sodium tablet PO SCH (20:00)
[2021-07-11 20:24] LABS: BASOPHILS % (AUTO) 0.2 % (0-1); EOSINOPHILS % (AUTO) 0.1 % (0-6); HEMATOCRIT 28.5 % (42.0-52.0); LYMPHOCYTES # (AUTO) 0.5 X10'3 (1.1-4.8); LYMPHOCYTES % (AUTO) 6.9 % (21-51); MEAN CORPUSCULAR HEMOGLOBIN 31.4 PG (27.0-31.0); MEAN CORPUSCULAR HGB CONC 35.1 g/dL (33.0-36.5); MEAN CORPUSCULAR VOLUME 89.4 FL (78-98); MEAN PLATELET VOLUME 8.2 FL (7.4-10.4); MONOCYTES # (AUTO) 0.4 X10'3 (0-0.9); MONOCYTES % (AUTO) 4.8 % (2-12); NEUTROPHILS # (AUTO) 6.5 X10'3 (1.8-7.7); PLATELET COUNT 188 X10'3 (140-440); RED BLOOD COUNT 3.19 X10'6 (4.70-6.10); RED CELL DISTRIBUTION WIDTH 13.2 % (11.5-14.5); WHITE BLOOD COUNT 7.4 X10'3 (4.5-11.0)
[2021-07-11] MEDS: vancomycin/NS 1 GM ADD-VANTAGE 250 ML IV SCH (20:27)
[2021-07-11] MEDS: ketorolac tromethamine 15mg/ml inj. IV SCH (20:27)
[2021-07-11 20:30] LABS: ALBUMIN 3.3 G/DL (3.4-5.0); ANION GAP 9 (8-16); BLOOD UREA NITROGEN 15 MG/DL (7-18); BUN/CREATININE RATIO 12.1 (5.4-32.0); CALCIUM 8.2 MG/DL (8.5-10.1); CHLORIDE 111 MMOL/L (99-107); CREATININE 1.24 MG/DL (0.60-1.10); GLUCOSE 136 MG/DL (70-104); MAGNESIUM 2.6 MG/DL (1.5-2.4); POTASSIUM 4.8 MMOL/L (3.5-5.1); SODIUM 144 MMOL/L (135-145); eGFR 71 ML/MIN
[2021-07-11] MEDS: atorvastatin 10mg tablet PO SCH (21:00)
[2021-07-12] VITALS (24 sets, daily range): BP systolic 105–148; BP diastolic 64–92
[2021-07-12] MEDS: morphine 4 MG/ML inj SYRINge IV PRN ×6 (00:17→19:30)
--- NOTE | 2021-07-12 01:44 | NUR ---
Patient awake, tolerating ice chips. Requiring frequent reminders to not pull self up with arms and to use sternal precautions. Will continue to monitor closely.
[2021-07-12] MEDS: ketorolac tromethamine 15mg/ml inj. IV SCH (01:45)
[2021-07-12 02:39] LABS: BASOPHILS % (AUTO) 0.1 % (0-1); EOSINOPHILS % (AUTO) 0 % (0-6); HEMATOCRIT 28.6 % (42.0-52.0); HEMOGLOBIN 9.9 g/dl (14.0-17.9); LYMPHOCYTES # (AUTO) 0.9 X10'3 (1.1-4.8); LYMPHOCYTES % (AUTO) 8.2 % (21-51); MEAN CORPUSCULAR HEMOGLOBIN 31.1 PG (27.0-31.0); MEAN CORPUSCULAR HGB CONC 34.5 g/dL (33.0-36.5); MEAN CORPUSCULAR VOLUME 90.1 FL (78-98); MEAN PLATELET VOLUME 8.5 FL (7.4-10.4); MONOCYTES # (AUTO) 0.6 X10'3 (0-0.9); MONOCYTES % (AUTO) 5.5 % (2-12); NEUTROPHILS # (AUTO) 9.5 X10'3 (1.8-7.7); NEUTROPHILS % (AUTO) 86.2 % (42-75); PLATELET COUNT 184 X10'3 (140-440); RED BLOOD COUNT 3.18 X10'6 (4.70-6.10); RED CELL DISTRIBUTION WIDTH 13.3 % (11.5-14.5)
[2021-07-12 02:57] LABS: PARTIAL THROMBOPLASTIN TIME 32 SECONDS (22-32)
[2021-07-12 03:10] LABS: ALANINE AMINOTRANSFERASE 52 U/L (12-78); ALBUMIN 3.3 G/DL (3.4-5.0); ALKALINE PHOSPHATASE 54 IU/L (46-116); ANION GAP 8 (8-16); ASPARTATE AMINO TRANSFERASE 104 U/L (10-37); BILIRUBIN,TOTAL 0.7 MG/DL (0.1-1.0); BLOOD UREA NITROGEN 17 MG/DL (7-18); BUN/CREATININE RATIO 13.9 (5.4-32.0); CALCIUM 8.3 MG/DL (8.5-10.1); CHLORIDE 112 MMOL/L (99-107); CREATININE 1.22 MG/DL (0.60-1.10); GLUCOSE 118 MG/DL (70-104); MAGNESIUM 2.5 MG/DL (1.5-2.4); PHOSPHORUS 5.4 MG/DL (2.3-4.5); POTASSIUM 4.5 MMOL/L (3.5-5.1); SODIUM 144 MMOL/L (135-145); TOTAL CARBON DIOXIDE 23.9 MMOL/L (24-32); TOTAL PROTEIN 6.5 G/DL (6.4-8.2); eGFR 72 ML/MIN
[2021-07-12] MEDS: albuterol 2.5 MG/3 ML nebule NEB SCH ×4 (03:10→20:24)
--- NOTE | 2021-07-12 04:25 | NUR ---
Stood patient at side of the bed with 3 person assist. Tolerated well. Returned to bed without incident.
[2021-07-12] MEDS: HYDROcodone/acetaminophen 10/325mg tab PO PRN ×2 (04:45→23:04)
--- NOTE | 2021-07-12 06:22 | NUR ---
Problems reprioritized. Patient report given, questions answered & plan of care reviewed with Nina MENDOZA.
--- NOTE | 2021-07-12 06:30 | NUR ---
Received report from REJI Belcher and REJI Jones
[2021-07-12] MEDS: ketorolac trometh. 30mg/ml inj. IV PRN ×2 (06:43→12:25)
[2021-07-12] MEDS: metoprolol tartrate 12.5mg (1/2 tablet) PO SCH ×2 (08:00→19:55)
[2021-07-12] MEDS: pantoprazole 40MG/NS 100ML BAG 100 ML IV SCH (09:23)
[2021-07-12] MEDS: ceFAZolin/D5W- 1GM premix 50 ML IV SCH ×2 (09:25→17:18)
[2021-07-12] MEDS: vancomycin/NS 1 GM ADD-VANTAGE 250 ML IV SCH ×2 (09:25→20:27)
[2021-07-12] MEDS: aspirin 325mg tablet, delayed-release (Ecotrin) PO SCH (09:31)
[2021-07-12] MEDS: sennosides/docusate sodium tablet PO SCH ×2 (09:31→19:55)
[2021-07-12] MEDS: gabapentin 300mg capsule PO SCH ×3 (09:31→20:36)
[2021-07-12] MEDS: mupirocin 2% nasal ointment 1gm UD NS SCH ×2 (09:31→19:54)
[2021-07-12] MEDS: budesonide 0.5mg/2ml UD nebule IH SCH ×2 (10:08→20:27)
[2021-07-12] MEDS: NORepinephrine 8mg/ 250ml NS 250 ML IV SCH (11:08)
[2021-07-12] MEDS: Insulin Reg/NS 100units/100mL 100 ML IV SCH (14:50)
--- NOTE | 2021-07-12 18:30 | NUR ---
Patient in room ICU 2044. I have received report from Nina MENDOZA and had the opportunity to ask questions and assume patient care.
--- NOTE | 2021-07-12 18:40 | NUR ---
Report given to REJI Jones and REJI Belcher
[2021-07-12] MEDS: atorvastatin 10mg tablet PO SCH (20:36)
[2021-07-13] VITALS (24 sets, daily range): BP systolic 102–157; BP diastolic 69–109
[2021-07-13] MEDS: ceFAZolin/D5W- 1GM premix 50 ML IV SCH (00:06)
[2021-07-13 02:46] LABS: BASOPHILS % (AUTO) 0.1 % (0-1); EOSINOPHILS % (AUTO) 0 % (0-6); HEMATOCRIT 28.3 % (42.0-52.0); HEMOGLOBIN 9.6 g/dl (14.0-17.9); LYMPHOCYTES # (AUTO) 1.2 X10'3 (1.1-4.8); LYMPHOCYTES % (AUTO) 8.8 % (21-51); MEAN CORPUSCULAR HEMOGLOBIN 30.8 PG (27.0-31.0); MEAN CORPUSCULAR HGB CONC 33.8 g/dL (33.0-36.5); MEAN CORPUSCULAR VOLUME 90.9 FL (78-98); MEAN PLATELET VOLUME 8.4 FL (7.4-10.4); MONOCYTES # (AUTO) 0.9 X10'3 (0-0.9); MONOCYTES % (AUTO) 6.9 % (2-12); NEUTROPHILS # (AUTO) 11.4 X10'3 (1.8-7.7); NEUTROPHILS % (AUTO) 84.2 % (42-75); PLATELET COUNT 145 X10'3 (140-440); RED BLOOD COUNT 3.11 X10'6 (4.70-6.10); RED CELL DISTRIBUTION WIDTH 13.4 % (11.5-14.5); WHITE BLOOD COUNT 13.6 X10'3 (4.5-11.0)
[2021-07-13 02:55] LABS: ALBUMIN 3.4 G/DL (3.4-5.0); BLOOD UREA NITROGEN 33 MG/DL (7-18); BUN/CREATININE RATIO 26.8 (5.4-32.0); CALCIUM 8.5 MG/DL (8.5-10.1); CREATININE 1.23 MG/DL (0.60-1.10); GLUCOSE 138 MG/DL (70-104); MAGNESIUM 2.3 MG/DL (1.5-2.4); TOTAL CARBON DIOXIDE 27.9 MMOL/L (24-32); eGFR 72 ML/MIN
[2021-07-13 03:12] LABS: ANION GAP 7 (8-16); CHLORIDE 105 MMOL/L (99-107); SODIUM 140 MMOL/L (135-145)
[2021-07-13] MEDS: albuterol 2.5 MG/3 ML nebule NEB SCH ×4 (03:15→20:35)
--- NOTE | 2021-07-13 04:00 | NUR ---
Patient restless, complaining of left sided pain. Sitting up in chair, repositioned, chest tubes unobstructed. Offered pain medication, patient refused, Encouraged controlled breathing, and relaxation techniques. Patient states pain relieved through distraction techniques. Sats maintained on 5L NC of 94%.
[2021-07-13] MEDS: morphine 4 MG/ML inj SYRINge IV PRN ×2 (04:46→09:09)
--- NOTE | 2021-07-13 04:51 | NUR ---
Patient restless, impulsive. Requiring frequent reminders to use sternal precautions. Attempting to get up unassisted. Ambulated patient with 3 person assist 20 feet. Patient tolerated well. Returned to bed without incident. Medicated for 7 out 10 pain per patient statement.
[2021-07-13] MEDS: NORepinephrine 8mg/ 250ml NS 250 ML IV SCH ×2 (04:55→22:42)
--- NOTE | 2021-07-13 06:00 | NUR ---
Patient in room ICU 2044. I have received report from REJI Belcher and had the opportunity to ask questions and assume patient care.
--- NOTE | 2021-07-13 06:28 | NUR ---
Problems reprioritized. Patient report given, questions answered & plan of care reviewed with Fozia MENDOZA.
[2021-07-13] MEDS ORDERED: pantoprazole 40mg Tablet.DR PO SCH (07:30)
[2021-07-13] MEDS: sennosides/docusate sodium tablet PO SCH ×2 (07:51→19:50)
[2021-07-13] MEDS: gabapentin 300mg capsule PO SCH (07:51)
[2021-07-13] MEDS: pantoprazole 40MG/NS 100ML BAG 100 ML IV SCH (07:51)
[2021-07-13] MEDS: aspirin 325mg tablet, delayed-release (Ecotrin) PO SCH (07:51)
[2021-07-13] MEDS: metoprolol tartrate 12.5mg (1/2 tablet) PO SCH (07:52)
[2021-07-13] MEDS: mupirocin 2% nasal ointment 1gm UD NS SCH (07:52)
[2021-07-13] MEDS: HYDROcodone/acetaminophen 10/325mg tab PO PRN (07:57)
[2021-07-13] MEDS ORDERED: metoprolol tartrate 12.5mg (1/2 tablet) PO ONE (08:40)
--- NOTE | 2021-07-13 09:15 | NUR ---
Dr. Jeronimo at bedside along with Cardiology PA. Both drains removed. medicated pt with morphine 4mg iv to help with pain of procedure. Will monitor.
[2021-07-13] MEDS: budesonide 0.5mg/2ml UD nebule IH SCH ×2 (09:16→20:35)
--- NOTE | 2021-07-13 11:37 | NUR ---
Initial: pt s/p CABG 07/11. Currently on Regular/NCS diet eating ~100% of meals meeting needs at this time. Pt may benefit from Ruslan smoothies BID to aid w/ wound healing. LB 07/09 receiving routine senna. Provided pt w/ written and verbal CABG nutrition therapy w/ RD contact info, pt receptive of info. Will continue to monitor. Recs: 1. Continue Regular/NCS diet as tolerated 2. Ruslan Smoothie BIDBD; pending MD approval 3. Bowel care per rx 4. Weekly wts Addendum: 07/13/21 at [address] Amended: Links added.
[2021-07-13] MEDS: sodium chloride 0.45% 1,000 ML IV SCH (13:00)
--- NOTE | 2021-07-13 13:16 | NUR ---
Talked to patient about having a bowel movement. He states it has been a few days since he has had one. Pt is passing gas. Educated patient on options to help and pt stated that he understood but adamantly refuses anything to help have a bowel movement. Will continue to monitor.
[2021-07-13] MEDS: JUVEN Smoothie Arginine/Glut./Ca2+Bmb (Juven 19.3pkt) 240ml cup PO SCH (17:30)
[2021-07-13] MEDS ORDERED: ALPRAZolam 0.25mg tablet PO ONE (19:05)
[2021-07-13] MEDS: atorvastatin 10mg tablet PO SCH (19:47)
[2021-07-13] MEDS: metoprolol tartrate 25mg tablet PO SCH (19:49)
[2021-07-14] VITALS (21 sets, daily range): BP systolic 90–141; BP diastolic 53–87
[2021-07-14] MEDS: Insulin Reg/NS 100units/100mL 100 ML IV SCH (00:10)
[2021-07-14] MEDS: morphine 4 MG/ML inj SYRINge IV PRN (02:33)
[2021-07-14 03:58] LABS: BASOPHILS % (AUTO) 0.1 % (0-1); EOSINOPHILS # (AUTO) 0.2 X10'3 (0-0.9); EOSINOPHILS % (AUTO) 1.7 % (0-6); HEMATOCRIT 27.5 % (42.0-52.0); HEMOGLOBIN 9.5 g/dl (14.0-17.9); LYMPHOCYTES # (AUTO) 1.7 X10'3 (1.1-4.8); LYMPHOCYTES % (AUTO) 16.5 % (21-51); MEAN CORPUSCULAR HEMOGLOBIN 31.2 PG (27.0-31.0); MEAN CORPUSCULAR HGB CONC 34.5 g/dL (33.0-36.5); MEAN CORPUSCULAR VOLUME 90.5 FL (78-98); MEAN PLATELET VOLUME 8.1 FL (7.4-10.4); MONOCYTES # (AUTO) 1.2 X10'3 (0-0.9); MONOCYTES % (AUTO) 11.4 % (2-12); NEUTROPHILS # (AUTO) 7.3 X10'3 (1.8-7.7); NEUTROPHILS % (AUTO) 70.3 % (42-75); PLATELET COUNT 129 X10'3 (140-440); RED BLOOD COUNT 3.04 X10'6 (4.70-6.10); RED CELL DISTRIBUTION WIDTH 13.1 % (11.5-14.5); WHITE BLOOD COUNT 10.4 X10'3 (4.5-11.0)
[2021-07-14] MEDS: albuterol 2.5 MG/3 ML nebule NEB SCH (04:01)
[2021-07-14 04:32] LABS: ANION GAP 4 (8-16); BLOOD UREA NITROGEN 22 MG/DL (7-18); BUN/CREATININE RATIO 25.6 (5.4-32.0); CHLORIDE 101 MMOL/L (99-107); CREATININE 0.86 MG/DL (0.60-1.10); GLUCOSE 101 MG/DL (70-104); MAGNESIUM 2.1 MG/DL (1.5-2.4); PHOSPHORUS 2.9 MG/DL (2.3-4.5); POTASSIUM 4.1 MMOL/L (3.5-5.1); SODIUM 137 MMOL/L (135-145); TOTAL CARBON DIOXIDE 32.2 MMOL/L (24-32); eGFR > 90 ML/MIN
--- NOTE | 2021-07-14 06:19 | NUR ---
Problems reprioritized. Patient report given, questions answered & plan of care reviewed with REJI Garza.
[2021-07-14 06:43] LABS: ACT @ 1.70 U 336 SEC (193-297); ACT @ 2.84 U 521 SEC (260-420); BASELINE ACT 160 SEC (101-148); PATIENT WEIGHT 75.0k KG
[2021-07-14] MEDS: JUVEN Smoothie Arginine/Glut./Ca2+Bmb (Juven 19.3pkt) 240ml cup PO SCH ×2 (07:30→17:30)
[2021-07-14] MEDS ORDERED: furosemide 20 MG/2 ML vial IV ONE (07:35)
[2021-07-14] MEDS ORDERED: potassium Cl 40MEQ/250ML bag 250 ML IV PRN (07:50)
[2021-07-14] MEDS ORDERED: potassium Cl 20 mEq SR tablet PO PRN (07:50)
[2021-07-14] MEDS ORDERED: potassium CL 10mEq/100ml bag 100 ML IV PRN (07:50)
[2021-07-14] MEDS ORDERED: potassium Cl 20mEq/100mL bag 100 ML IV PRN (07:50)
[2021-07-14] MEDS ORDERED: magnesium 4gm in 100ml NS 100 ML IV PRN (07:50)
[2021-07-14] MEDS ORDERED: potassium Cl 40MEQ/1/2NS 520ml 520 ML IV PRN (07:50)
[2021-07-14] MEDS ORDERED: magnesium 2GM in 50ml NS 50 ML IV PRN (07:50)
[2021-07-14] MEDS ORDERED: papaverine 30 mg/ml 2ml inj. ONE (08:00)
[2021-07-14] MEDS: magnesium Cl slow-release 64mg tablet PO SCH ×2 (08:00→20:00)
[2021-07-14] MEDS ORDERED: heparin 10,000 units/1 ML INJ ONE (08:00)
[2021-07-14] MEDS: aspirin 325mg tablet, delayed-release (Ecotrin) PO SCH (08:00)
[2021-07-14] MEDS: metoprolol tartrate 25mg tablet PO SCH ×2 (08:01→20:34)
[2021-07-14] MEDS: sennosides/docusate sodium tablet PO SCH ×2 (08:01→20:33)
[2021-07-14] MEDS: potassium Cl 20 mEq SR tablet PO SCH ×2 (08:03→20:33)
--- NOTE | 2021-07-14 08:50 | NUR ---
CABG consult: Previously addressed in last RD assessment. Addendum: 07/14/21 at [address] Amended: Links added.
[2021-07-14] MEDS: HYDROcodone/acetaminophen 10/325mg tab PO PRN (09:08)
[2021-07-14] MEDS: albuterol 2.5 MG/3 ML nebule NEB PRN ×2 (09:40→20:13)
[2021-07-14] MEDS: budesonide 0.5mg/2ml UD nebule IH SCH ×2 (09:41→20:13)
[2021-07-14 13:20] LABS: MAGNESIUM 2.3 MG/DL (1.5-2.4)
--- NOTE | 2021-07-14 18:30 | NUR ---
Transfer report given to GERMAIN in PCU
--- NOTE | 2021-07-14 18:36 | NUR ---
Problems reprioritized. Patient report given, questions answered & plan of care reviewed with REJI Santo. Pt stable at the time of handoff.
--- NOTE | 2021-07-14 19:55 | NUR ---
Patient was transfer to PCU in a stable condition with belongings
[2021-07-14] MEDS: atorvastatin 10mg tablet PO SCH (20:34)
[2021-07-15 02:00] VITALS: BP 109/77
[2021-07-15] MEDS: HYDROcodone/acetaminophen 10/325mg tab PO PRN ×2 (04:13→20:06)
[2021-07-15 07:32] LABS: BASOPHILS # (AUTO) 0.1 X10'3 (0-0.2); BASOPHILS % (AUTO) 0.8 % (0-1); EOSINOPHILS # (AUTO) 0.7 X10'3 (0-0.9); EOSINOPHILS % (AUTO) 7.1 % (0-6); HEMATOCRIT 30.6 % (42.0-52.0); HEMOGLOBIN 10.7 g/dl (14.0-17.9); LYMPHOCYTES % (AUTO) 21.1 % (21-51); MEAN CORPUSCULAR HEMOGLOBIN 31.3 PG (27.0-31.0); MEAN CORPUSCULAR VOLUME 89.5 FL (78-98); MEAN PLATELET VOLUME 8.1 FL (7.4-10.4); MONOCYTES % (AUTO) 10.5 % (2-12); NEUTROPHILS # (AUTO) 5.6 X10'3 (1.8-7.7); NEUTROPHILS % (AUTO) 60.5 % (42-75); PLATELET COUNT 149 X10'3 (140-440); RED BLOOD COUNT 3.42 X10'6 (4.70-6.10); RED CELL DISTRIBUTION WIDTH 12.7 % (11.5-14.5); WHITE BLOOD COUNT 9.2 X10'3 (4.5-11.0)
[2021-07-15 07:43] LABS: ANION GAP 7 (8-16); BLOOD UREA NITROGEN 23 MG/DL (7-18); BUN/CREATININE RATIO 27.1 (5.4-32.0); CALCIUM 8.7 MG/DL (8.5-10.1); CHLORIDE 103 MMOL/L (99-107); CREATININE 0.85 MG/DL (0.60-1.10); GLUCOSE 97 MG/DL (70-104); POTASSIUM 4.1 MMOL/L (3.5-5.1); SODIUM 138 MMOL/L (135-145); TOTAL CARBON DIOXIDE 27.8 MMOL/L (24-32); eGFR > 90 ML/MIN
[2021-07-15] MEDS: JUVEN Smoothie Arginine/Glut./Ca2+Bmb (Juven 19.3pkt) 240ml cup PO SCH ×2 (07:54→17:30)
[2021-07-15] MEDS: metoprolol tartrate 25mg tablet PO SCH ×2 (07:54→20:08)
[2021-07-15] MEDS: aspirin 325mg tablet, delayed-release (Ecotrin) PO SCH (07:55)
[2021-07-15] MEDS: magnesium Cl slow-release 64mg tablet PO SCH ×2 (07:55→20:06)
[2021-07-15] MEDS: sennosides/docusate sodium tablet PO SCH ×2 (07:56→20:08)
[2021-07-15] MEDS: budesonide 0.5mg/2ml UD nebule IH SCH ×2 (08:24→19:20)
[2021-07-15] MEDS: albuterol 2.5 MG/3 ML nebule NEB PRN (08:24)
[2021-07-15] MEDS ORDERED: furosemide 40mg/4ml inj IV ONE (08:35)
[2021-07-15] MEDS: potassium Cl 20 mEq SR tablet PO SCH ×2 (09:04→20:07)
[2021-07-15 10:40] VITALS: BP 92/60
[2021-07-15] MEDS ORDERED: albuterol 2.5 MG/3 ML nebule NEB SCH (12:00)
[2021-07-15] MEDS: albuterol 2.5 MG/3 ML nebule NEB SCH ×3 (12:02→23:13)
[2021-07-15 12:34] VITALS: BP 102/77
--- NOTE | 2021-07-15 15:10 | NUR ---
Patient in room MED 313. I have received report from Ana and had the opportunity to ask questions and assume patient care.
[2021-07-15 15:11] VITALS: BP 106/72
--- NOTE | 2021-07-15 18:32 | NUR ---
Problems reprioritized. Patient report given to Familia MENDOZA, questions answered & plan of care reviewed with Gualberto MENDOZA.
[2021-07-15] MEDS: furosemide 20MG tablet PO SCH (20:05)
[2021-07-15] MEDS: atorvastatin 10mg tablet PO SCH (20:06)
[2021-07-15 22:00] VITALS: BP 113/83
[2021-07-16 02:00] VITALS: BP 116/76
[2021-07-16] MEDS: albuterol 2.5 MG/3 ML nebule NEB SCH ×6 (03:18→23:11)
[2021-07-16 06:30] VITALS: BP 112/70
[2021-07-16 06:45] LABS: BASOPHILS % (AUTO) 0.4 % (0-1); EOSINOPHILS # (AUTO) 0.7 X10'3 (0-0.9); EOSINOPHILS % (AUTO) 7.6 % (0-6); HEMATOCRIT 33.3 % (42.0-52.0); HEMOGLOBIN 11.7 g/dl (14.0-17.9); LYMPHOCYTES # (AUTO) 2.4 X10'3 (1.1-4.8); LYMPHOCYTES % (AUTO) 26.2 % (21-51); MEAN CORPUSCULAR HEMOGLOBIN 31.4 PG (27.0-31.0); MEAN CORPUSCULAR HGB CONC 35.1 g/dL (33.0-36.5); MEAN CORPUSCULAR VOLUME 89.7 FL (78-98); MEAN PLATELET VOLUME 7.5 FL (7.4-10.4); MONOCYTES # (AUTO) 1.2 X10'3 (0-0.9); MONOCYTES % (AUTO) 12.9 % (2-12); NEUTROPHILS # (AUTO) 4.9 X10'3 (1.8-7.7); NEUTROPHILS % (AUTO) 52.9 % (42-75); PLATELET COUNT 188 X10'3 (140-440); RED BLOOD COUNT 3.71 X10'6 (4.70-6.10); WHITE BLOOD COUNT 9.2 X10'3 (4.5-11.0)
[2021-07-16 07:07] LABS: ALBUMIN 3.1 G/DL (3.4-5.0); ANION GAP 10 (8-16); BLOOD UREA NITROGEN 27 MG/DL (7-18); BUN/CREATININE RATIO 26.7 (5.4-32.0); CALCIUM 8.7 MG/DL (8.5-10.1); CHLORIDE 101 MMOL/L (99-107); CREATININE 1.01 MG/DL (0.60-1.10); GLUCOSE 98 MG/DL (70-104); SODIUM 139 MMOL/L (135-145); TOTAL CARBON DIOXIDE 27.8 MMOL/L (24-32); eGFR 90 ML/MIN
[2021-07-16] MEDS: potassium Cl 20 mEq SR tablet PO SCH ×2 (08:00→21:09)
[2021-07-16] MEDS: budesonide 0.5mg/2ml UD nebule IH SCH ×2 (08:22→19:18)
[2021-07-16] MEDS: sennosides/docusate sodium tablet PO SCH ×2 (09:41→20:00)
[2021-07-16] MEDS: metoprolol tartrate 25mg tablet PO SCH ×2 (09:41→21:11)
[2021-07-16] MEDS: aspirin 325mg tablet, delayed-release (Ecotrin) PO SCH (09:42)
[2021-07-16] MEDS: furosemide 20MG tablet PO SCH ×2 (09:42→21:09)
[2021-07-16] MEDS: magnesium Cl slow-release 64mg tablet PO SCH ×2 (09:42→21:10)
[2021-07-16] MEDS: HYDROcodone/acetaminophen 10/325mg tab PO PRN (13:43)
[2021-07-16 19:00] VITALS: BP 106/81
--- NOTE | 2021-07-16 19:00 | NUR ---
Wound vac dressing changed. Pt tolerated with minimal discomfort.
--- NOTE | 2021-07-16 19:00 | NUR ---
Able to reposition self in bed. Addendum: 07/17/21 at 0031 by Zoraida Cassidy RN, RN Amended: Links added.
[2021-07-16 20:00] VITALS: BP 94/75
[2021-07-16] MEDS: atorvastatin 10mg tablet PO SCH (21:10)
[2021-07-16 22:00] VITALS: BP 108/87
[2021-07-16 23:00] VITALS: BP 115/78
[2021-07-17 01:00] VITALS: BP 102/60
[2021-07-17 02:51] VITALS: BP 105/63
[2021-07-17] MEDS: albuterol 2.5 MG/3 ML nebule NEB SCH ×6 (03:25→22:43)
[2021-07-17 06:00] VITALS: BP 120/81
[2021-07-17 06:10] LABS: BASOPHILS % (AUTO) 0.3 % (0-1); EOSINOPHILS # (AUTO) 0.6 X10'3 (0-0.9); HEMATOCRIT 37.3 % (42.0-52.0); HEMOGLOBIN 12.4 g/dl (14.0-17.9); LYMPHOCYTES # (AUTO) 2.5 X10'3 (1.1-4.8); LYMPHOCYTES % (AUTO) 22.5 % (21-51); MEAN CORPUSCULAR HEMOGLOBIN 30.3 PG (27.0-31.0); MEAN CORPUSCULAR HGB CONC 33.4 g/dL (33.0-36.5); MEAN CORPUSCULAR VOLUME 90.6 FL (78-98); MEAN PLATELET VOLUME 7.6 FL (7.4-10.4); MONOCYTES # (AUTO) 1.3 X10'3 (0-0.9); MONOCYTES % (AUTO) 11.4 % (2-12); NEUTROPHILS # (AUTO) 6.8 X10'3 (1.8-7.7); NEUTROPHILS % (AUTO) 60.8 % (42-75); PLATELET COUNT 249 X10'3 (140-440); RED BLOOD COUNT 4.11 X10'6 (4.70-6.10); RED CELL DISTRIBUTION WIDTH 13.1 % (11.5-14.5); WHITE BLOOD COUNT 11.2 X10'3 (4.5-11.0)
[2021-07-17 06:35] LABS: ALBUMIN 3.3 G/DL (3.4-5.0); ANION GAP 8 (8-16); BLOOD UREA NITROGEN 26 MG/DL (7-18); CALCIUM 9.2 MG/DL (8.5-10.1); CHLORIDE 100 MMOL/L (99-107); CREATININE 1.18 MG/DL (0.60-1.10); GLUCOSE 115 MG/DL (70-104); POTASSIUM 4.6 MMOL/L (3.5-5.1); SODIUM 136 MMOL/L (135-145); TOTAL CARBON DIOXIDE 27.8 MMOL/L (24-32); eGFR 75 ML/MIN
[2021-07-17] MEDS: furosemide 20MG tablet PO SCH ×2 (07:06→08:00)
[2021-07-17] MEDS: aspirin 325mg tablet, delayed-release (Ecotrin) PO SCH (07:06)
[2021-07-17] MEDS: sennosides/docusate sodium tablet PO SCH ×2 (07:06→20:00)
[2021-07-17] MEDS: metoprolol tartrate 25mg tablet PO SCH ×2 (07:07→20:28)
[2021-07-17] MEDS: HYDROcodone/acetaminophen 10/325mg tab PO PRN ×2 (07:07→16:52)
[2021-07-17] MEDS ORDERED: polyethylene glycol 3350 17gm powd pack PO ONE (07:25)
[2021-07-17] MEDS: JUVEN Smoothie Arginine/Glut./Ca2+Bmb (Juven 19.3pkt) 240ml cup PO SCH ×2 (07:30→17:30)
[2021-07-17] MEDS: magnesium Cl slow-release 64mg tablet PO SCH ×2 (08:00→20:27)
[2021-07-17] MEDS: potassium Cl 20 mEq SR tablet PO SCH ×2 (08:00→20:29)
[2021-07-17] MEDS: budesonide 0.5mg/2ml UD nebule IH SCH ×2 (08:12→19:35)
[2021-07-17 10:00] VITALS: BP 109/76
[2021-07-17 15:00] VITALS: BP 99/75
--- NOTE | 2021-07-17 18:41 | NUR ---
Problems reprioritized. Patient report given, questions answered & plan of care reviewed with REJI Ray.
[2021-07-17] MEDS: atorvastatin 10mg tablet PO SCH (20:27)
[2021-07-18] MEDS: albuterol 2.5 MG/3 ML nebule NEB SCH ×6 (03:42→23:12)
[2021-07-18 06:00] VITALS: BP 98/47
[2021-07-18 06:05] LABS: ANION GAP 6 (8-16); BLOOD UREA NITROGEN 27 MG/DL (7-18); BUN/CREATININE RATIO 24.8 (5.4-32.0); CALCIUM 8.6 MG/DL (8.5-10.1); CHLORIDE 100 MMOL/L (99-107); CREATININE 1.09 MG/DL (0.60-1.10); GLUCOSE 104 MG/DL (70-104); POTASSIUM 4.3 MMOL/L (3.5-5.1); SODIUM 132 MMOL/L (135-145); TOTAL CARBON DIOXIDE 25.7 MMOL/L (24-32); eGFR 82 ML/MIN
[2021-07-18] MEDS: JUVEN Smoothie Arginine/Glut./Ca2+Bmb (Juven 19.3pkt) 240ml cup PO SCH ×2 (07:30→18:14)
[2021-07-18] MEDS: budesonide 0.5mg/2ml UD nebule IH SCH ×2 (07:41→18:58)
[2021-07-18] MEDS: sennosides/docusate sodium tablet PO SCH ×2 (08:00→21:47)
[2021-07-18] MEDS: potassium Cl 20 mEq SR tablet PO SCH ×2 (08:00→21:45)
[2021-07-18] MEDS: aspirin 325mg tablet, delayed-release (Ecotrin) PO SCH (08:02)
[2021-07-18] MEDS: magnesium Cl slow-release 64mg tablet PO SCH ×2 (08:02→21:46)
[2021-07-18] MEDS: metoprolol tartrate 25mg tablet PO SCH ×2 (08:03→21:47)
[2021-07-18] MEDS: furosemide 20MG tablet PO SCH (08:03)
[2021-07-18] MEDS ORDERED: LOP25T PO (09:09)
[2021-07-18] MEDS ORDERED: HYDR-3972 PO (09:09)
[2021-07-18] MEDS ORDERED: ASPI-1071 PO (09:09)
--- NOTE | 2021-07-18 09:45 | NUR ---
Radha Room 313. Yeison Staley. Got a call from sheet metal production worker with the [facility]. He has some questions/concerns before d/c. Please call him, Rina Veronica at [phone]. Thanks
[2021-07-18 10:00] VITALS: BP 106/71
[2021-07-18] MEDS: HYDROcodone/acetaminophen 10/325mg tab PO PRN (10:44)
--- NOTE | 2021-07-18 10:53 | NUR ---
Paged [facility] Room 313. Yeison Staley. Got a call from radiation control worker with the [facility]. He has some questions/concerns before d/c. Please call him, Rina Veronica at [phone]. Thanks
--- NOTE | 2021-07-18 12:46 | NUR ---
SS Spoke with adriel Ruth to d/c [facility] Dav Varela [phone] to pick pulling machine tender. Called [facility]. He advised that he cannot provide housing for pt. He will contact Flory direct. Paged Flory too/
--- NOTE | 2021-07-18 12:54 | NUR ---
Spoke with Flory I will get with patient to see if he can have his sister in law pick him up. She was visiting this AM.
--- NOTE | 2021-07-18 12:56 | NUR ---
Per pt - he cannot go stay with his sister in law Michael. "I can't stay at that crack house with all those people". "Put me back in retirement!". Paged SS re: above.
--- NOTE | 2021-07-18 13:10 | NUR ---
Per pt his sister in law Michael lives with someone. He cannot go there "it's not even her house". Before senior care he lived with his who now lives in [place]. He has no one else here.
--- NOTE | 2021-07-18 13:24 | NUR ---
WOUND INFECTION EDUCATION PROVIDED BY WOUND CARE 1. Patient instructed to call their primary doctor, or go the ED immediately if any of the following symptoms occur: * Increased pain in wound * Increase in drainage from the wound * Redness in the skin surrounding the wound * Warmth in the skin surrounding the wound * Bleeding from the wound * Temperature of 101 or greater 2. If any of these occur while in the hospital tell a nurse immediately. PRESSURE ULCER EDUCATION: DEFINITION: A pressure ulcer is an area of skin that breaks down when you stay in one position too long. The constant pressure against the skin reduces the blood flow to that area and the affected tissue dies. CAUSES: "Being bedridden or in a wheelchair "Fragile skin "Having a chronic condition, such as diabetes or vascular disease "Inability to move certain parts of your body without assistance "Older age "Incontinence of urine or stool SYMPTOMS: "A reddened area that DOES NOT turn white when pressed on - this can be the beginning of a pressure ulcer "A blister, deep sore or a crater - these can be advanced pressure ulcers FIRST AID: "Relieve the pressure on this area "Keep the area clean and dry "Call your primary doctor if you see any of the above symptoms "DO NOT massage the area "DO NOT use a donut shaped or ring shaped pillow- these actually interfere with the blood flow and cause complications PREVENTION: "Check for pressure ulcers everyday "Change position at least every two hours to relieve pressure "Use items that help relieve pressure- pillows, sheepskin, foam padding, and powders. "Keep skin clean and dry "Eat healthy well balanced meals "Exercise daily IF YOU SEE ANY OF THESE SYMPTOMS WHILE IN THE HOSPITAL - TELL YOUR NURSE IMMEDIATELY. IF YOU SEE ANY OF THESE SYMPTOMS WHILE AT HOME OR HAVE ANY QUESTIONS OR CONCERNS ABOUT PRESSURE ULCERS - CALL YOUR PRIMARY DOCTOR IMMEDIATELY. Addendum: 07/18/21 at 1325 by Irais Sanchez RN Amended: Links added.
[2021-07-18 14:40] LABS: ACTIVATED CLOTTING TIME 140 SEC (101-148)
[2021-07-18 15:00] VITALS: BP 108/75
--- NOTE | 2021-07-18 15:45 | NUR ---
Spoke with AGUSTINA Ball. Ok to keep prevena off. Seal was broken. Cover with gauze and tape or island dressing if needed.
[2021-07-18 18:00] VITALS: BP 112/81
--- NOTE | 2021-07-18 18:29 | NUR ---
Problems reprioritized. Patient report given, questions answered & plan of care reviewed with REJI Belcher.
--- NOTE | 2021-07-18 18:40 | NUR ---
Patient in room MED 313. I have received report from Leigh MENDOZA and had the opportunity to ask questions and assume patient care.
[2021-07-18] MEDS: atorvastatin 10mg tablet PO SCH (21:46)
[2021-07-18 22:00] VITALS: BP 105/74
[2021-07-19] VITALS (7 sets, daily range): BP systolic 94–121; BP diastolic 62–85
[2021-07-19] MEDS: albuterol 2.5 MG/3 ML nebule NEB SCH ×6 (04:21→23:00)
[2021-07-19 06:20] LABS: ALBUMIN 2.9 G/DL (3.4-5.0); ANION GAP 10 (8-16); BLOOD UREA NITROGEN 29 MG/DL (7-18); BUN/CREATININE RATIO 26.4 (5.4-32.0); CALCIUM 8.4 MG/DL (8.5-10.1); CHLORIDE 103 MMOL/L (99-107); GLUCOSE 100 MG/DL (70-104); POTASSIUM 4.6 MMOL/L (3.5-5.1); SODIUM 140 MMOL/L (135-145); TOTAL CARBON DIOXIDE 27.5 MMOL/L (24-32); eGFR 82 ML/MIN
--- NOTE | 2021-07-19 06:34 | NUR ---
Problems reprioritized. Patient report given, questions answered & plan of care reviewed with Leigh MENDOZA.
[2021-07-19] MEDS: aspirin 325mg tablet, delayed-release (Ecotrin) PO SCH (07:03)
[2021-07-19] MEDS: metoprolol tartrate 25mg tablet PO SCH ×2 (07:03→19:09)
[2021-07-19] MEDS: furosemide 20MG tablet PO SCH (07:03)
[2021-07-19] MEDS: sennosides/docusate sodium tablet PO SCH ×3 (07:03→19:12)
[2021-07-19] MEDS: HYDROcodone/acetaminophen 10/325mg tab PO PRN (07:03)
[2021-07-19] MEDS: JUVEN Smoothie Arginine/Glut./Ca2+Bmb (Juven 19.3pkt) 240ml cup PO SCH ×2 (07:30→17:30)
[2021-07-19] MEDS: budesonide 0.5mg/2ml UD nebule IH SCH ×2 (07:48→20:05)
[2021-07-19] MEDS: potassium Cl 20 mEq SR tablet PO SCH ×2 (08:00→19:10)
[2021-07-19] MEDS: magnesium Cl slow-release 64mg tablet PO SCH ×2 (08:00→19:10)
--- NOTE | 2021-07-19 14:27 | NUR ---
F/u 07/19: Pt PO 100% avg heart healthy/NCS diet w/ 50% Ruslan smoothie ONS BID meeting needs. LBM 07/17 receiving routine senna. No further nutrition interventions at this time. Will continue to monitor. Recs: 1. Continue heart healthy/NCS diet per MD; consider NCS removal given Glu WNL and day 7 post-op if MD agreeable 2. Ruslan Smoothie BIDBD; encourage PO 3. Bowel care per rx 4. Weekly wts Addendum: 07/19/21 at [address] Amended: Links added.
[2021-07-19] MEDS: atorvastatin 10mg tablet PO SCH (19:10)
[2021-07-20 02:04] VITALS: BP 104/68
[2021-07-20] MEDS: albuterol 2.5 MG/3 ML nebule NEB SCH ×6 (02:56→23:17)
[2021-07-20] MEDS: HYDROcodone/acetaminophen 10/325mg tab PO PRN ×2 (05:28→18:42)
[2021-07-20 06:00] VITALS: BP 128/88
--- NOTE | 2021-07-20 06:27 | NUR ---
Problems reprioritized. Patient report given, questions answered & plan of care reviewed with REJI Sigala.
--- NOTE | 2021-07-20 06:49 | NUR ---
Patient in room MED 313. I have received report from REJI Yepez and had the opportunity to ask questions and assume patient care.
[2021-07-20 06:59] LABS: ALBUMIN 2.8 G/DL (3.4-5.0); ANION GAP 6 (8-16); BLOOD UREA NITROGEN 23 MG/DL (7-18); BUN/CREATININE RATIO 19.3 (5.4-32.0); CALCIUM 8.3 MG/DL (8.5-10.1); CHLORIDE 104 MMOL/L (99-107); CREATININE 1.19 MG/DL (0.60-1.10); GLUCOSE 110 MG/DL (70-104); SODIUM 136 MMOL/L (135-145); TOTAL CARBON DIOXIDE 26.5 MMOL/L (24-32); eGFR 74 ML/MIN
[2021-07-20] MEDS: budesonide 0.5mg/2ml UD nebule IH SCH ×2 (07:14→19:44)
[2021-07-20] MEDS: potassium Cl 20 mEq SR tablet PO SCH ×2 (07:23→19:30)
[2021-07-20] MEDS: magnesium Cl slow-release 64mg tablet PO SCH ×2 (07:24→19:31)
[2021-07-20] MEDS: JUVEN Smoothie Arginine/Glut./Ca2+Bmb (Juven 19.3pkt) 240ml cup PO SCH ×2 (07:30→17:30)
[2021-07-20] MEDS: sennosides/docusate sodium tablet PO SCH ×2 (09:29→19:57)
[2021-07-20] MEDS: aspirin 325mg tablet, delayed-release (Ecotrin) PO SCH (09:29)
[2021-07-20] MEDS: metoprolol tartrate 25mg tablet PO SCH ×2 (09:30→19:57)
[2021-07-20] MEDS: furosemide 20MG tablet PO SCH (09:30)
[2021-07-20 10:00] VITALS: BP 121/71
[2021-07-20 14:00] VITALS: BP 110/72
[2021-07-20 18:00] VITALS: BP 108/88
--- NOTE | 2021-07-20 18:15 | NUR ---
Problems reprioritized. Patient report given, questions answered & plan of care reviewed with REJI WHEELER.
[2021-07-20] MEDS: atorvastatin 10mg tablet PO SCH (19:56)
[2021-07-20 22:00] VITALS: BP 108/88
[2021-07-21 02:00] VITALS: BP 108/71
[2021-07-21] MEDS: albuterol 2.5 MG/3 ML nebule NEB SCH ×6 (03:29→23:16)
[2021-07-21 06:00] VITALS: BP 95/68
[2021-07-21 06:26] LABS: ALBUMIN 2.9 G/DL (3.4-5.0); ANION GAP 6 (8-16); BLOOD UREA NITROGEN 24 MG/DL (7-18); BUN/CREATININE RATIO 22.2 (5.4-32.0); CALCIUM 8.3 MG/DL (8.5-10.1); CHLORIDE 105 MMOL/L (99-107); CREATININE 1.08 MG/DL (0.60-1.10); GLUCOSE 98 MG/DL (70-104); POTASSIUM 4.1 MMOL/L (3.5-5.1); SODIUM 140 MMOL/L (135-145); TOTAL CARBON DIOXIDE 28.9 MMOL/L (24-32); eGFR 83 ML/MIN
--- NOTE | 2021-07-21 06:27 | NUR ---
Problems reprioritized. Patient report given, questions answered & plan of care reviewed with REJI Bradley.
[2021-07-21 06:38] LABS: ACT @ 1.70 U 320 SEC (193-297); ACT @ 2.84 U 481 SEC (260-420); BASELINE ACT 147 SEC (101-148); PATIENT WEIGHT 75.0k KG
[2021-07-21] MEDS: budesonide 0.5mg/2ml UD nebule IH SCH ×2 (07:13→19:18)
[2021-07-21] MEDS: sennosides/docusate sodium tablet PO SCH ×2 (08:13→19:41)
[2021-07-21] MEDS: potassium Cl 20 mEq SR tablet PO SCH ×2 (08:14→19:40)
[2021-07-21] MEDS: metoprolol tartrate 25mg tablet PO SCH ×2 (08:14→19:44)
[2021-07-21] MEDS: furosemide 20MG tablet PO SCH (08:14)
[2021-07-21] MEDS: aspirin 325mg tablet, delayed-release (Ecotrin) PO SCH (08:14)
[2021-07-21] MEDS: magnesium Cl slow-release 64mg tablet PO SCH ×2 (08:14→19:41)
[2021-07-21] MEDS: JUVEN Smoothie Arginine/Glut./Ca2+Bmb (Juven 19.3pkt) 240ml cup PO SCH ×2 (08:27→17:30)
[2021-07-21 11:00] VITALS: BP 103/68
[2021-07-21 18:00] VITALS: BP 111/76
[2021-07-21] MEDS: atorvastatin 10mg tablet PO SCH (20:32)
[2021-07-21 22:00] VITALS: BP 91/58
--- NOTE | 2021-07-21 22:06 | NUR ---
Med not ordered; will notify morning nurse to clarify note. Regular lotion provided to pt Addendum: 07/21/21 at 2208 by Lianne Cassidy RN Amended: Links added.
--- NOTE | 2021-07-22 01:30 | NUR ---
Cotton pt coughing, went to assess pt. Pt is sitting at the edge coughing and stated that he is out of breath; RR =25 and oxygen [id number] % on room air. Placed pt on oxygen 2l via NC. Pt reported feeling better and went back to sleep.
[2021-07-22 02:00] VITALS: BP 92/64
[2021-07-22] MEDS: albuterol 2.5 MG/3 ML nebule NEB SCH ×6 (03:00→23:00)
--- NOTE | 2021-07-22 05:30 | NUR ---
Pt is sleeping; no signs of respiratory discomfort noted.
--- NOTE | 2021-07-22 06:36 | NUR ---
Problems reprioritized. Patient report given, questions answered & plan of care reviewed with REJI Abdalla. Pt stated he was still feeling SOB, sat 95%, wearing 2L NC for comfort. Pt requested cream from wound care which is not ordered; will request it on rounds.
[2021-07-22] MEDS: JUVEN Smoothie Arginine/Glut./Ca2+Bmb (Juven 19.3pkt) 240ml cup PO SCH ×2 (07:30→17:50)
[2021-07-22] MEDS: budesonide 0.5mg/2ml UD nebule IH SCH ×2 (07:55→19:36)
[2021-07-22 08:00] VITALS: BP 128/72
[2021-07-22] MEDS: sennosides/docusate sodium tablet PO SCH ×2 (08:00→20:03)
[2021-07-22] MEDS: aspirin 325mg tablet, delayed-release (Ecotrin) PO SCH (08:09)
[2021-07-22] MEDS: furosemide 20MG tablet PO SCH (08:09)
[2021-07-22] MEDS: magnesium Cl slow-release 64mg tablet PO SCH ×2 (08:09→20:03)
[2021-07-22] MEDS: potassium Cl 20 mEq SR tablet PO SCH ×2 (08:11→20:03)
[2021-07-22] MEDS: metoprolol tartrate 25mg tablet PO SCH ×2 (08:21→20:04)
[2021-07-22 10:00] VITALS: BP 107/76
[2021-07-22 14:00] VITALS: BP 108/71
[2021-07-22 18:00] VITALS: BP 111/79
--- NOTE | 2021-07-22 18:44 | NUR ---
Patient in room MED 313. I have received report from Kathie MENDOZA and had the opportunity to ask questions and assume patient care.
[2021-07-22] MEDS ORDERED: mineral oil/petrolatum, white cream 113gm jar TP SCH (20:00)
[2021-07-22] MEDS: atorvastatin 10mg tablet PO SCH (20:03)
[2021-07-22] MEDS: HYDROcodone/acetaminophen 10/325mg tab PO PRN (20:06)
[2021-07-22 22:00] VITALS: BP 106/62
[2021-07-23 02:00] VITALS: BP 98/60
[2021-07-23] MEDS: albuterol 2.5 MG/3 ML nebule NEB SCH ×3 (03:23→11:00)
[2021-07-23 06:00] VITALS: BP 115/74
--- NOTE | 2021-07-23 06:25 | NUR ---
Problems reprioritized. Patient report given, questions answered & plan of care reviewed with Funmilayo MENDOZA.
[2021-07-23] MEDS: budesonide 0.5mg/2ml UD nebule IH SCH (07:28)
[2021-07-23] MEDS: JUVEN Smoothie Arginine/Glut./Ca2+Bmb (Juven 19.3pkt) 240ml cup PO SCH (07:30)
[2021-07-23] MEDS: potassium Cl 20 mEq SR tablet PO SCH (08:16)
[2021-07-23] MEDS: magnesium Cl slow-release 64mg tablet PO SCH (08:16)
[2021-07-23] MEDS: sennosides/docusate sodium tablet PO SCH (08:16)
[2021-07-23] MEDS: furosemide 20MG tablet PO SCH (08:17)
[2021-07-23] MEDS: aspirin 325mg tablet, delayed-release (Ecotrin) PO SCH (08:17)
[2021-07-23 08:18] VITALS: BP_SYST 115
[2021-07-23] MEDS: metoprolol tartrate 25mg tablet PO SCH (08:18)
--- NOTE | 2021-07-23 10:31 | NUR ---
patient discharged home, picked up by chief human resources officer.Discharge instructions explained to patient, scripts and valve card given to patient. all personal belongings sent home with patient. Transported to [facility] in wheelchair, transported by personal vehicle.
== END 2021-07-23 10:20 | disposition home or self-care (01) | DRG 217 ==
LOC: ER 15:09 → EEVIPCON 20:37 → ED HOLD 20:37 → PCU 3S 07-09 07:35 → MED 3N 07-11 04:18 → ICU 2S 07-11 08:05 → PCU 3S 07-14 19:10 → MED 3N 07-15 14:56
PROVIDERS: ADMIT Internal Medicine; ATTEND Thoracic Surgery (Cardiothoracic Vascular Surgery)
PROC: B32T1ZZ Computerized Tomography (CT Scan) of Left Pulmonary Artery using Low Osmolar Contrast (ICD-10-PCS; 2021-07-08)
PROC: B3201ZZ Computerized Tomography (CT Scan) of Thoracic Aorta using Low Osmolar Contrast (ICD-10-PCS; 2021-07-08)
PROC: B32S1ZZ Computerized Tomography (CT Scan) of Right Pulmonary Artery using Low Osmolar Contrast (ICD-10-PCS; 2021-07-08)
PROC: 4A023N7 Measurement of Cardiac Sampling and Pressure, Left Heart, Percutaneous Approach (ICD-10-PCS; principal; 2021-07-09)
PROC: B2111ZZ Fluoroscopy of Multiple Coronary Arteries using Low Osmolar Contrast (ICD-10-PCS; 2021-07-09)
PROC: B2151ZZ Fluoroscopy of Left Heart using Low Osmolar Contrast (ICD-10-PCS; 2021-07-09)
PROC: B3101ZZ Fluoroscopy of Thoracic Aorta using Low Osmolar Contrast (ICD-10-PCS; 2021-07-09)
PROC: B41F1ZZ Fluoroscopy of Right Lower Extremity Arteries using Low Osmolar Contrast (ICD-10-PCS; 2021-07-09)
PROC: B3121ZZ Fluoroscopy of Left Subclavian Artery using Low Osmolar Contrast (ICD-10-PCS; 2021-07-09)
PROC: B3111ZZ Fluoroscopy of Right Brachiocephalic-Subclavian Artery using Low Osmolar Contrast (ICD-10-PCS; 2021-07-09)
PROC: 4A02XM4 Measurement of Cardiac Total Activity, External Approach (ICD-10-PCS; 2021-07-09)
PROC: 3E073KZ Introduction of Other Diagnostic Substance into Coronary Artery, Percutaneous Approach (ICD-10-PCS; 2021-07-09)
PROC: 02RF08Z Replacement of Aortic Valve with Zooplastic Tissue, Open Approach (ICD-10-PCS; 2021-07-11)
PROC: 02100Z9 Bypass Coronary Artery, One Artery from Left Internal Mammary, Open Approach (ICD-10-PCS; 2021-07-11)
PROC: 021109W Bypass Coronary Artery, Two Arteries from Aorta with Autologous Venous Tissue, Open Approach (ICD-10-PCS; 2021-07-11)
PROC: 06BQ4ZZ Excision of Left Saphenous Vein, Percutaneous Endoscopic Approach (ICD-10-PCS; 2021-07-11)
PROC: 5A1221Z Performance of Cardiac Output, Continuous (ICD-10-PCS; 2021-07-11)
PROC: B24BZZ4 Ultrasonography of Heart with Aorta, Transesophageal (ICD-10-PCS; 2021-07-11)
PROC: 30233K1 Transfusion of Nonautologous Frozen Plasma into Peripheral Vein, Percutaneous Approach (ICD-10-PCS; 2021-07-11)
PROC: 30233R1 Transfusion of Nonautologous Platelets into Peripheral Vein, Percutaneous Approach (ICD-10-PCS; 2021-07-11)
DX: I25.119 Atherosclerotic heart disease of native coronary artery with unspecified angina pectoris (principal); I24.9 Acute ischemic heart disease, unspecified; E78.5 Hyperlipidemia, unspecified; I12.9 Hypertensive chronic kidney disease with stage 1 through stage 4 chronic kidney disease, or unspecified chronic kidney disease; I35.1 Nonrheumatic aortic (valve) insufficiency; I49.3 Ventricular premature depolarization; I73.9 Peripheral vascular disease, unspecified; R74.01 Elevation of levels of liver transaminase levels; J43.9 Emphysema, unspecified; L20.9 Atopic dermatitis, unspecified; N18.30 Chronic kidney disease, stage 3 unspecified; Z20.822 Contact with and (suspected) exposure to COVID-19; Z86.16 Personal history of COVID-19; Z87.891 Personal history of nicotine dependence; Z88.0 Allergy status to penicillin; Z59.00 Homelessness unspecified; Z56.0 Unemployment, unspecified
CPT/HCPCS: 0232T; 93306; 93312; 93325; 93458; 99285; Z7506; Z7508; 36415; 36430; 36600; 71045; 71046; 71275; 78452; 80048; 80053; 80061; 81003; 82330; 82435; 82803; 82947; 82948; 83036; 83605; 83735; 83880; 84100; 84132; 84295; 84484; 85018; 85025; 85347; 85379; 85384; 85610; 85730; 86885; 86900; 86901; 86920; 87040; 87081; 87635; 93005; 93017; 93880; 93971; 94002; 94060; 94640; 94667; 94668; 94760; 97110; 97116; 97161; 97162; 97530; 97535; 99152; 99153; A4618; A6258; A6402; A6446; A6449; A7000; A7048; A9500; C1713; C1751; C1760; C1769; C9113; G0378; J0690; J1265; J1644; J1815; J1885; J1940; J2060; J2150; J2250; J2270; J2440; J2704; J2785; J2930; J3010; J3370; J3475; J3480; J3490; J7030; J7040; J7050; J7060; J7120; P9035; P9045; P9047; P9059; Q9967

== ENCOUNTER 2021-08-08 10:27 | Emergency (ER) | payer MEDICAID ==
[~2021-08-08] VITALS: Ht 175.3 cm; Wt 72.0 kg
[~2021-08-08 10:27] MED LIST changes: -ALBU8.5H17 INH; +ALBU8HFA PO; +ASPI-1071 PO; +ATOR20TA PO; +HYDR-3972 PO; +LOP25T PO; +OMEP40CA21 PO
[2021-08-08 10:33] VITALS: BP 127/86
[2021-08-08] MEDS ORDERED: ALBUTEROL INHALER 1 PUFF/90 MCG INHALER IH PRN (10:40)
--- NOTE | 2021-08-08 11:06 | NUR ---
NOTIFIED CHARGE CORAL THAT PT HAD OPEN HEART SX IN JUL 11 ,PRESENTED WITH SOB AND IF WE HAVE A BED AVAILABLE HE SHD BE PLACED IN ROOM ,CHARGE NURSE AGREES .
[2021-08-08 11:14] LABS: BASOPHILS % (AUTO) 0.8 % (0-1); EOSINOPHILS # (AUTO) 0.4 X10'3 (0-0.9); EOSINOPHILS % (AUTO) 9.3 % (0-6); HEMATOCRIT 35.6 % (42.0-52.0); HEMOGLOBIN 11.6 g/dl (14.0-17.9); LYMPHOCYTES # (AUTO) 1.4 X10'3 (1.1-4.8); LYMPHOCYTES % (AUTO) 31.3 % (21-51); MEAN CORPUSCULAR HEMOGLOBIN 29.4 PG (27.0-31.0); MEAN CORPUSCULAR HGB CONC 32.5 g/dL (33.0-36.5); MEAN CORPUSCULAR VOLUME 90.5 FL (78-98); MONOCYTES # (AUTO) 0.5 X10'3 (0-0.9); MONOCYTES % (AUTO) 11.4 % (2-12); NEUTROPHILS # (AUTO) 2.1 X10'3 (1.8-7.7); NEUTROPHILS % (AUTO) 47.2 % (42-75); PLATELET COUNT 247 X10'3 (140-440); RED BLOOD COUNT 3.93 X10'6 (4.70-6.10); RED CELL DISTRIBUTION WIDTH 13.9 % (11.5-14.5); WHITE BLOOD COUNT 4.4 X10'3 (4.5-11.0)
[2021-08-08 11:23] LABS: ALANINE AMINOTRANSFERASE 29 U/L (12-78); ALBUMIN/GLOBULIN RATIO 0.6 (1.1-1.5); ALKALINE PHOSPHATASE 101 IU/L (46-116); ANION GAP 6 (8-16); ASPARTATE AMINO TRANSFERASE 28 U/L (10-37); BILIRUBIN,TOTAL 0.4 MG/DL (0.1-1.0); BLOOD UREA NITROGEN 13 MG/DL (7-18); BUN/CREATININE RATIO 11.3 (5.4-32.0); CALCIUM 8.8 MG/DL (8.5-10.1); CHLORIDE 106 MMOL/L (99-107); CREATININE 1.15 MG/DL (0.60-1.10); GLUCOSE 86 MG/DL (70-104); POTASSIUM 4.1 MMOL/L (3.5-5.1); SODIUM 139 MMOL/L (135-145); TOTAL CARBON DIOXIDE 26.7 MMOL/L (24-32); TOTAL PROTEIN 8.3 G/DL (6.4-8.2); eGFR 77 ML/MIN
== END 2021-08-08 12:40 | disposition home or self-care (01) ==
LOC: ER 10:28
DX: J44.9 Chronic obstructive pulmonary disease, unspecified (principal); Z20.822 Contact with and (suspected) exposure to COVID-19; R06.02 Shortness of breath; R07.89 Other chest pain; I10 Essential (primary) hypertension; Z72.89 Other problems related to lifestyle; Z56.0 Unemployment, unspecified; Z59.00 Homelessness unspecified; Z88.0 Allergy status to penicillin; Z79.82 Long term (current) use of aspirin; Z79.899 Other long term (current) drug therapy
CPT/HCPCS: 36415; 71045; 80053; 83880; 84484; 85025; 87635; 93005; 99285; C9803

== ENCOUNTER 2022-05-25 20:22 | Emergency (ER) | payer MEDICARE, MEDICAID ==
[~2022-05-25] VITALS: Ht 175.3 cm; Wt 77.3 kg
[2022-05-25 20:38] VITALS: BP 145/103
== END 2022-05-26 01:03 | disposition left against medical advice (07) ==
LOC: ER 20:23
DX: I10 Essential (primary) hypertension (principal); Z53.21 Procedure and treatment not carried out due to patient leaving prior to being seen by health care provider

== ENCOUNTER 2023-08-21 11:16 | Emergency (ER) | payer MEDICARE, MEDICAID ==
[~2023-08-21] VITALS: Ht 175.3 cm; Wt 78.1 kg
[2023-08-21 11:24] VITALS: TEMP 97.9
[2023-08-21 11:37] LABS: BASOPHILS % (AUTO) 0.5 % (0-1); EOSINOPHILS # (AUTO) 0.1 X10'3 (0-0.9); EOSINOPHILS % (AUTO) 1.4 % (0-6); HEMATOCRIT 54.8 % (42.0-52.0); LYMPHOCYTES # (AUTO) 2.1 X10'3 (1.1-4.8); LYMPHOCYTES % (AUTO) 33.7 % (21-51); MEAN CORPUSCULAR HEMOGLOBIN 30.1 PG (27.0-31.0); MEAN CORPUSCULAR HGB CONC 33.6 g/dL (33.0-36.5); MEAN CORPUSCULAR VOLUME 89.6 FL (78-98); MEAN PLATELET VOLUME 7.2 FL (7.4-10.4); MONOCYTES # (AUTO) 0.7 X10'3 (0-0.9); MONOCYTES % (AUTO) 10.8 % (2-12); NEUTROPHILS # (AUTO) 3.4 X10'3 (1.8-7.7); NEUTROPHILS % (AUTO) 53.6 % (42-75); PLATELET COUNT 229 X10'3 (140-440); RED BLOOD COUNT 6.12 X10'6 (4.70-6.10); RED CELL DISTRIBUTION WIDTH 13.7 % (11.5-14.5); WHITE BLOOD COUNT 6.3 X10'3 (4.5-11.0)
[2023-08-21 11:39] LABS: HEMOGLOBIN 18.4 g/dl (14.0-17.9)
[2023-08-21 11:52] LABS: ALANINE AMINOTRANSFERASE 58 U/L (12-78); ALBUMIN 3.4 G/DL (3.4-5.0); ALBUMIN/GLOBULIN RATIO 0.6 (1.1-1.5); ALKALINE PHOSPHATASE 113 IU/L (46-116); ANION GAP 5 (8-16); ASPARTATE AMINO TRANSFERASE 46 U/L (10-37); BILIRUBIN,TOTAL 0.7 MG/DL (0.1-1.0); BLOOD UREA NITROGEN 14 MG/DL (7-18); BUN/CREATININE RATIO 12.3 (10.0-20.0); CALCIUM 9.4 MG/DL (8.5-10.1); CHLORIDE 100 MMOL/L (99-107); CREATININE 1.14 MG/DL (0.60-1.10); GLUCOSE 91 MG/DL (70-104); POTASSIUM 4.6 MMOL/L (3.5-5.1); SODIUM 135 MMOL/L (135-145); TOTAL PROTEIN 9.3 G/DL (6.4-8.2); eCRCL 63 ML/MIN; eGFR 78 ML/MIN
[2023-08-21 12:00] LABS: PRO BRAIN NATRIURETIC PEPTIDE 494 PG/ML (0-125)
[2023-08-21] MEDS ORDERED: AZIT250T83 PO (16:51)
[2023-08-21] MEDS ORDERED: AMLO-140 PO (16:51)
[2023-08-21 17:08] VITALS: BP 145/102; PULSE 84; RESP 14; O2SAT 98
== END 2023-08-21 17:12 | disposition home or self-care (01) ==
LOC: ER 11:17
DX: J44.9 Chronic obstructive pulmonary disease, unspecified (principal); R05.9 Cough, unspecified; I10 Essential (primary) hypertension; F17.200 Nicotine dependence, unspecified, uncomplicated; Z88.0 Allergy status to penicillin; Z79.2 Long term (current) use of antibiotics; Z79.899 Other long term (current) drug therapy
CPT/HCPCS: 36415; 71046; 80053; 83880; 84484; 85025; 93005; 99285

== ENCOUNTER 2023-10-11 07:56 | Emergency (ER) | payer MEDICARE, MEDICAID ==
[~2023-10-11] VITALS: Ht 175.3 cm; Wt 79.4 kg
[~2023-10-11 07:56] MED LIST changes: -HYDR-3972 PO
[2023-10-11] MEDS ORDERED: ALBU18HF2 INH (10:57)
[2023-10-11] MEDS ORDERED: DOXY100C43 PO (10:57)
[2023-10-11 10:58] VITALS: BP 140/98; PULSE 77; TEMP 97.8; O2SAT 98
[2023-10-11 10:59] VITALS: RESP 19
== END 2023-10-11 11:17 | disposition home or self-care (01) ==
LOC: ER 07:56
DX: J20.9 Acute bronchitis, unspecified (principal); I10 Essential (primary) hypertension; J44.9 Chronic obstructive pulmonary disease, unspecified; Z88.0 Allergy status to penicillin; Z79.82 Long term (current) use of aspirin; Z79.899 Other long term (current) drug therapy
CPT/HCPCS: 99283

== ENCOUNTER 2024-02-04 07:58 | Emergency (ER) | payer MEDICARE, MEDICAID ==
[~2024-02-04] VITALS: Ht 175.3 cm; Wt 78.7 kg
[~2024-02-04 07:58] MED LIST changes: +ALBU18HF2 INH
[2024-02-04 08:03] VITALS: TEMP 97.6
[2024-02-04] MEDS ORDERED: BACI1PAC7 TOP (08:21)
[2024-02-04] MEDS: ketorolac tromethamine 15mg/ml inj. IM ONE (08:41)
[2024-02-04] MEDS: bacitracin 15gm ointment TP ONE (08:42)
[2024-02-04 08:56] VITALS: BP 147/97; PULSE 96; RESP 17; O2SAT 97
== END 2024-02-04 08:59 ==
LOC: ER 07:59
DX: L25.8 Unspecified contact dermatitis due to other agents (principal); I25.10 Atherosclerotic heart disease of native coronary artery without angina pectoris; I10 Essential (primary) hypertension; J44.9 Chronic obstructive pulmonary disease, unspecified; F17.210 Nicotine dependence, cigarettes, uncomplicated; Z88.0 Allergy status to penicillin; Z79.82 Long term (current) use of aspirin; Z79.899 Other long term (current) drug therapy; Z79.51 Long term (current) use of inhaled steroids; Z98.890 Other specified postprocedural states; Z95.1 Presence of aortocoronary bypass graft; Z72.89 Other problems related to lifestyle; Z56.0 Unemployment, unspecified
CPT/HCPCS: 96372; 99285; J1885; 99283

== ENCOUNTER 2024-03-10 00:40 | Inpatient (IN) | payer MEDICARE, MEDICAID ==
[~2024-03-10] VITALS: Ht 175.3 cm; Wt 77.5 kg
[2024-03-10] VITALS (9 sets, daily range): BP systolic 112–150; BP diastolic 88–106; PULSE 60–97; RESP 17–18; TEMP 98.1; O2SAT 95–98
[2024-03-10 01:22] LABS: BASOPHILS % (AUTO) 0.6 % (0-1); EOSINOPHILS # (AUTO) 0.1 X10'3 (0-0.9); EOSINOPHILS % (AUTO) 1.8 % (0-6); HEMATOCRIT 46.4 % (42.0-52.0); HEMOGLOBIN 15.6 g/dl (14.0-17.9); LYMPHOCYTES # (AUTO) 1.8 X10'3 (1.1-4.8); LYMPHOCYTES % (AUTO) 29.1 % (21-51); MEAN CORPUSCULAR HEMOGLOBIN 29.8 PG (27.0-31.0); MEAN CORPUSCULAR HGB CONC 33.5 g/dL (33.0-36.5); MEAN PLATELET VOLUME 7.6 FL (7.4-10.4); MONOCYTES # (AUTO) 0.7 X10'3 (0-0.9); MONOCYTES % (AUTO) 10.4 % (2-12); NEUTROPHILS # (AUTO) 3.6 X10'3 (1.8-7.7); NEUTROPHILS % (AUTO) 58.1 % (42-75); PLATELET COUNT 243 X10'3 (140-440); RED BLOOD COUNT 5.22 X10'6 (4.70-6.10); RED CELL DISTRIBUTION WIDTH 13.8 % (11.5-14.5); WHITE BLOOD COUNT 6.2 X10'3 (4.5-11.0)
[2024-03-10 01:43] LABS: ALBUMIN 3.6 G/DL (3.4-5.0); ANION GAP 10 (8-16); BLOOD UREA NITROGEN 19 MG/DL (7-18); BUN/CREATININE RATIO 16.7 (10.0-20.0); CALCIUM 9.6 MG/DL (8.5-10.1); CHLORIDE 103 MMOL/L (99-107); CREATININE 1.14 MG/DL (0.60-1.10); GLUCOSE 105 MG/DL (70-104); PRO BRAIN NATRIURETIC PEPTIDE 1076 PG/ML (0-125); SODIUM 136 MMOL/L (135-145); TOTAL CARBON DIOXIDE 23.3 MMOL/L (24-32); eCRCL 63 ML/MIN; eGFR 78 ML/MIN
[2024-03-10] MEDS: aspirin 325mg tablet PO ONE (02:57)
[2024-03-10] MEDS ORDERED: morphine 2 MG/ML inj. syringe IV PRN (05:25)
[2024-03-10] MEDS ORDERED: ondansetron/PF 4mg/2ml inj IV PRN (05:25)
[2024-03-10] MEDS ORDERED: magnesium Cl slow-release 64mg tablet PO PRN (05:25)
[2024-03-10] MEDS ORDERED: potassium Cl 20 mEq SR tablet PO PRN ×2 (05:25)
[2024-03-10] MEDS ORDERED: potassium Cl 40MEQ/1/2NS 520ml 520 ML IV PRN (05:25)
[2024-03-10] MEDS ORDERED: acetaminophen 325mg tablet PO PRN (05:25)
[2024-03-10] MEDS ORDERED: magnesium sulf-water 2g/50mL 50 ML IV PRN (05:25)
[2024-03-10] MEDS ORDERED: magnesium sulf-water 4G/100mL 100 ML IV PRN (05:25)
[2024-03-10] MEDS ORDERED: aminophylline 250mg/10ml inj. IV PRN (05:35)
[2024-03-10] MEDS ORDERED: metoprolol tartrate 1mg/ml inj IV PRN (05:35)
[2024-03-10] MEDS ORDERED: nitroGLYCERIN 0.4mg SUBLingual tab SL PRN (05:35)
[2024-03-10 06:58] LABS: HEMOGLOBIN A1C 5.9 % (4.5-6.2)
[2024-03-10] MEDS: K and/or MAG REPLACEMENT MC SCH (07:03)
[2024-03-10 07:08] LABS: CHOL/HDL RATIO 3.7 (0.00-4.99); CHOLESTEROL 165 MG/DL (0-200); FREE T4 (FREE THYROXINE) 0.97 NG/DL (0.73-1.40); HDL CHOLESTEROL 45 MG/DL (35-60); LDL CHOLESTEROL 95 MG/DL (50-100); POTASSIUM 4.1 MMOL/L (3.5-5.1); THYROID STIMULATING HORMONE 0.98 ulU/ml (0.34-4.50); TRIGLYCERIDES 86 MG/DL (20-135)
[2024-03-10] MEDS: metoprolol succinate 25mg (24-HOUR) SR. Tablet PO SCH (07:13)
[2024-03-10] MEDS: atorvastatin 20mg tablet PO SCH (07:13)
[2024-03-10] MEDS: aspirin 81mg, enteric-coated 1 TAB TABLET.DR PO SCH (07:13)
[2024-03-10] MEDS: heparin, porcine 5000 units/ml vial SQ SCH (07:14)
[2024-03-10 07:35] LABS: D-DIMER 0.63 MG/L FEU (0-0.50)
[2024-03-10] MEDS: regadenoson 0.4mg/5ml syringe IV PRN (09:58)
== END 2024-03-10 14:46 | disposition left against medical advice (07) | DRG 291 ==
LOC: ER 00:41 → ED HOLD 05:29 → PCU 3S 08:29
PROVIDERS: ADMIT Student in an Organized Health Care Education/Training Program; ATTEND Family Medicine
PROC: 4A02XM4 Measurement of Cardiac Total Activity, External Approach (ICD-10-PCS; principal; 2024-03-10)
PROC: 3E033HZ Introduction of Radioactive Substance into Peripheral Vein, Percutaneous Approach (ICD-10-PCS; 2024-03-10)
DX: I11.0 Hypertensive heart disease with heart failure (principal); I50.23 Acute on chronic systolic (congestive) heart failure; J44.9 Chronic obstructive pulmonary disease, unspecified; Z53.21 Procedure and treatment not carried out due to patient leaving prior to being seen by health care provider; I25.10 Atherosclerotic heart disease of native coronary artery without angina pectoris; Z95.1 Presence of aortocoronary bypass graft; Z95.2 Presence of prosthetic heart valve; Z88.0 Allergy status to penicillin; Z91.199 Patient's noncompliance with other medical treatment and regimen due to unspecified reason; Z79.82 Long term (current) use of aspirin
CPT/HCPCS: 36415; 71045; 78452; 80048; 80061; 83036; 83880; 84132; 84439; 84443; 84484; 85025; 85379; 87081; 93005; 93017; 93306; 99285; A9500; G0378; J1644; J2785

== ENCOUNTER 2024-06-04 20:56 | Emergency (ER) | payer MEDICARE, MEDICAID ==
[~2024-06-04] VITALS: Ht 175.3 cm; Wt 84.1 kg
[~2024-06-04 20:56] MED LIST changes: -ALBU18HF2 INH; -ALBU8HFA PO; -ATOR20TA PO; -FLUT1DIS INH; -LOP25T PO; -OMEP40CA21 PO
[2024-06-04 20:58] VITALS: TEMP 97.8
[2024-06-04 21:17] VITALS: PULSE 112; RESP 20; O2SAT 99
[2024-06-04] MEDS: famotidine/PF 10 mg/ml inj IV ONE (21:26)
[2024-06-04] MEDS: methylPREDNISolone sod succ 125mg/2ml vial IV ONE (21:27)
[2024-06-04] MEDS: normal saline 1000ML IV soln IVB STA (21:29)
[2024-06-04 21:40] LABS: BASOPHILS % (AUTO) 0.2 % (0-1); EOSINOPHILS # (AUTO) 0.1 X10'3 (0-0.9); EOSINOPHILS % (AUTO) 0.8 % (0-6); HEMATOCRIT 46.5 % (42.0-52.0); HEMOGLOBIN 15.4 g/dl (14.0-17.9); LYMPHOCYTES # (AUTO) 2.1 X10'3 (1.1-4.8); LYMPHOCYTES % (AUTO) 27.4 % (21-51); MEAN CORPUSCULAR HGB CONC 33.3 g/dL (33.0-36.5); MEAN CORPUSCULAR VOLUME 90.3 FL (78-98); MEAN PLATELET VOLUME 7.7 FL (7.4-10.4); MONOCYTES # (AUTO) 0.4 X10'3 (0-0.9); MONOCYTES % (AUTO) 5.2 % (2-12); NEUTROPHILS # (AUTO) 5.1 X10'3 (1.8-7.7); NEUTROPHILS % (AUTO) 66.4 % (42-75); PLATELET COUNT 213 X10'3 (140-440); RED BLOOD COUNT 5.14 X10'6 (4.70-6.10); RED CELL DISTRIBUTION WIDTH 13.5 % (11.5-14.5); WHITE BLOOD COUNT 7.8 X10'3 (4.5-11.0)
[2024-06-04 22:03] LABS: ALBUMIN 2.9 G/DL (3.4-5.0); ANION GAP 6 (8-16); BLOOD UREA NITROGEN 19 MG/DL (7-18); BUN/CREATININE RATIO 17.3 (10.0-20.0); CALCIUM 8.4 MG/DL (8.5-10.1); CHLORIDE 106 MMOL/L (99-107); GLUCOSE 106 MG/DL (70-104); MAGNESIUM 1.8 MG/DL (1.5-2.4); POTASSIUM 3.6 MMOL/L (3.5-5.1); SODIUM 140 MMOL/L (135-145); TOTAL CARBON DIOXIDE 27.7 MMOL/L (24-32); eCRCL 65 ML/MIN; eGFR 81 ML/MIN
[2024-06-05] MEDS ORDERED: DEC4T PO (00:39)
[2024-06-05] MEDS ORDERED: CIME800T PO (00:39)
[2024-06-05] MEDS: methylPREDNISolone sod succ 125mg/2ml vial IV ONE (00:51)
[2024-06-05] MEDS: diphenhydrAMINE 50 mg/ml inj IV ONE (00:53)
[2024-06-05] MEDS: famotidine/PF 10 mg/ml inj IV ONE (00:55)
[2024-06-05 00:57] VITALS: BP 148/110; PULSE 103; RESP 19; O2SAT 96
== END 2024-06-05 01:11 | disposition home or self-care (01) ==
LOC: ER 20:57
DX: T78.2XXA Anaphylactic shock, unspecified, initial encounter (principal); I25.10 Atherosclerotic heart disease of native coronary artery without angina pectoris; J44.9 Chronic obstructive pulmonary disease, unspecified; I10 Essential (primary) hypertension; Z95.1 Presence of aortocoronary bypass graft; Z72.89 Other problems related to lifestyle; Z56.0 Unemployment, unspecified
CPT/HCPCS: 36415; 71045; 80048; 83735; 84484; 85025; 93005; 96374; 96375; 96376; 99291; A4615; J1200; J2919; J3490; J7030; 94760

== ENCOUNTER 2024-06-19 18:25 | Emergency (ER) | payer MEDICAID, MEDICARE ==
[~2024-06-19] VITALS: Ht 175.3 cm; Wt 74.0 kg
[~2024-06-19 18:25] MED LIST changes: +CIME800T PO
[2024-06-19 18:34] VITALS: TEMP 98.5
[2024-06-19 18:46] LABS: BASOPHILS % (AUTO) 0.3 % (0-1); EOSINOPHILS # (AUTO) 0.1 X10'3 (0-0.9); EOSINOPHILS % (AUTO) 0.9 % (0-6); HEMATOCRIT 44.1 % (42.0-52.0); HEMOGLOBIN 14.9 g/dl (14.0-17.9); LYMPHOCYTES # (AUTO) 1.5 X10'3 (1.1-4.8); MEAN CORPUSCULAR HEMOGLOBIN 30.4 PG (27.0-31.0); MEAN CORPUSCULAR HGB CONC 33.6 g/dL (33.0-36.5); MEAN CORPUSCULAR VOLUME 90.3 FL (78-98); MEAN PLATELET VOLUME 7.4 FL (7.4-10.4); MONOCYTES # (AUTO) 0.5 X10'3 (0-0.9); MONOCYTES % (AUTO) 6.6 % (2-12); NEUTROPHILS # (AUTO) 5.1 X10'3 (1.8-7.7); NEUTROPHILS % (AUTO) 71.2 % (42-75); PLATELET COUNT 213 X10'3 (140-440); RED BLOOD COUNT 4.89 X10'6 (4.70-6.10); RED CELL DISTRIBUTION WIDTH 13.6 % (11.5-14.5); WHITE BLOOD COUNT 7.2 X10'3 (4.5-11.0)
[2024-06-19 19:00] VITALS: BP_DIAS 106; O2SAT 95
[2024-06-19 19:00] LABS: ALANINE AMINOTRANSFERASE 32 U/L (12-78); ALBUMIN 3.2 G/DL (3.4-5.0); ALBUMIN/GLOBULIN RATIO 0.7 (1.1-1.5); ALKALINE PHOSPHATASE 125 IU/L (46-116); ANION GAP 4 (8-16); ASPARTATE AMINO TRANSFERASE 33 U/L (10-37); BLOOD UREA NITROGEN 21 MG/DL (7-18); BUN/CREATININE RATIO 16.5 (10.0-20.0); CALCIUM 8.8 MG/DL (8.5-10.1); CHLORIDE 104 MMOL/L (99-107); CREATININE 1.27 MG/DL (0.60-1.10); GLUCOSE 109 MG/DL (70-104); POTASSIUM 4.1 MMOL/L (3.5-5.1); SODIUM 135 MMOL/L (135-145); TOTAL CARBON DIOXIDE 27.5 MMOL/L (24-32); eCRCL 56 ML/MIN; eGFR 68 ML/MIN
[2024-06-19 19:07] LABS: PRO BRAIN NATRIURETIC PEPTIDE 3282 PG/ML (0-125)
[2024-06-19] MEDS ORDERED: LOP25T PO (19:35)
[2024-06-19] MEDS ORDERED: FURO-150 PO (19:35)
[2024-06-19 19:42] VITALS: BP_SYST 150
[2024-06-19] MEDS: furosemide 20MG tablet PO ONE (19:42)
[2024-06-19] MEDS: metoprolol tartrate 50mg tablet PO ONE (19:42)
[2024-06-19 19:45] VITALS: PULSE 121; RESP 18
== END 2024-06-19 19:47 | disposition home or self-care (01) ==
LOC: ER 18:26
DX: I11.0 Hypertensive heart disease with heart failure (principal); I50.9 Heart failure, unspecified; R07.89 Other chest pain; I25.10 Atherosclerotic heart disease of native coronary artery without angina pectoris; J44.9 Chronic obstructive pulmonary disease, unspecified; Z88.0 Allergy status to penicillin; Z91.018 Allergy to other foods; Z79.899 Other long term (current) drug therapy; Z95.1 Presence of aortocoronary bypass graft; Z91.148 Patient's other noncompliance with medication regimen for other reason
CPT/HCPCS: 36415; 71045; 80053; 83880; 84484; 85025; 93005; 99285

== ENCOUNTER 2024-07-04 03:23 | Emergency (ER) | payer MEDICARE, MEDICAID ==
[~2024-07-04] VITALS: Ht 175.3 cm; Wt 86.0 kg
[~2024-07-04 03:23] MED LIST changes: +EMPA10TA PO; +FURO40TA4 PO; +LISI5TAB22 PO; +METO-384 PO; +SPIR25TA PO
[2024-07-04 03:56] LABS: BASOPHILS % (AUTO) 0.1 % (0-1); EOSINOPHILS # (AUTO) 0.1 X10'3 (0-0.9); EOSINOPHILS % (AUTO) 1.3 % (0-6); HEMATOCRIT 45.1 % (42.0-52.0); HEMOGLOBIN 15.2 g/dl (14.0-17.9); LYMPHOCYTES # (AUTO) 2.5 X10'3 (1.1-4.8); LYMPHOCYTES % (AUTO) 26.2 % (21-51); MEAN CORPUSCULAR HEMOGLOBIN 30.8 PG (27.0-31.0); MEAN CORPUSCULAR HGB CONC 33.8 g/dL (33.0-36.5); MEAN CORPUSCULAR VOLUME 91.2 FL (78-98); MEAN PLATELET VOLUME 8.2 FL (7.4-10.4); MONOCYTES # (AUTO) 0.9 X10'3 (0-0.9); MONOCYTES % (AUTO) 9.5 % (2-12); NEUTROPHILS # (AUTO) 5.9 X10'3 (1.8-7.7); NEUTROPHILS % (AUTO) 62.9 % (42-75); PLATELET COUNT 211 X10'3 (140-440); RED BLOOD COUNT 4.94 X10'6 (4.70-6.10); RED CELL DISTRIBUTION WIDTH 14.2 % (11.5-14.5); WHITE BLOOD COUNT 9.4 X10'3 (4.5-11.0)
[2024-07-04 04:08] LABS: ALANINE AMINOTRANSFERASE 43 U/L (12-78); ALBUMIN 3.4 G/DL (3.4-5.0); ALBUMIN/GLOBULIN RATIO 0.7 (1.1-1.5); ALKALINE PHOSPHATASE 132 IU/L (46-116); ANION GAP 5 (8-16); ASPARTATE AMINO TRANSFERASE 40 U/L (10-37); BILIRUBIN,TOTAL 0.7 MG/DL (0.1-1.0); BLOOD UREA NITROGEN 28 MG/DL (7-18); BUN/CREATININE RATIO 21.4 (10.0-20.0); CALCIUM 7.9 MG/DL (8.5-10.1); CHLORIDE 102 MMOL/L (99-107); CREATININE 1.31 MG/DL (0.60-1.10); GLUCOSE 98 MG/DL (70-104); POTASSIUM 3.5 MMOL/L (3.5-5.1); SODIUM 140 MMOL/L (135-145); TOTAL CARBON DIOXIDE 32.7 MMOL/L (24-32); TOTAL PROTEIN 8.3 G/DL (6.4-8.2); eCRCL 55 ML/MIN; eGFR 66 ML/MIN
[2024-07-04 04:16] LABS: PRO BRAIN NATRIURETIC PEPTIDE 6427 PG/ML (0-125)
[2024-07-04] MEDS: ipratropium/albuterol 3ml nebule NEB ONE (04:17)
[2024-07-04 04:20] VITALS: PULSE 88; RESP 18; O2SAT 97
[2024-07-04 04:28] VITALS: PULSE 93; RESP 18; O2SAT 99
[2024-07-04] MEDS: furosemide 10 MG/1 ML 10ml inj IV ONE (04:33)
[2024-07-04 05:54] VITALS: BP 130/109; PULSE 94; RESP 20; TEMP 97.1; O2SAT 92
== END 2024-07-04 05:55 | disposition home or self-care (01) ==
LOC: ER 03:24
DX: I11.0 Hypertensive heart disease with heart failure (principal); I50.23 Acute on chronic systolic (congestive) heart failure; I25.10 Atherosclerotic heart disease of native coronary artery without angina pectoris; J44.9 Chronic obstructive pulmonary disease, unspecified; Z95.1 Presence of aortocoronary bypass graft; Z88.0 Allergy status to penicillin; Z91.018 Allergy to other foods; Z79.899 Other long term (current) drug therapy
CPT/HCPCS: 36415; 71045; 80053; 83880; 84484; 85025; 93005; 94640; 96374; 99285; J1940; Z7610; 94760

== ENCOUNTER 2024-07-21 18:32 | Emergency (ER) | payer MEDICARE, MEDICAID ==
[~2024-07-21] VITALS: Ht 175.3 cm; Wt 77.8 kg
[2024-07-21 19:14] VITALS: BP 121/62; PULSE 97; O2SAT 95
[2024-07-21 21:48] LABS: BASOPHILS % (AUTO) 0.5 % (0-1); EOSINOPHILS # (AUTO) 0.3 X10'3 (0-0.9); EOSINOPHILS % (AUTO) 3.7 % (0-6); HEMATOCRIT 45.9 % (42.0-52.0); HEMOGLOBIN 15.7 g/dl (14.0-17.9); LYMPHOCYTES # (AUTO) 1.8 X10'3 (1.1-4.8); LYMPHOCYTES % (AUTO) 26.6 % (21-51); MEAN CORPUSCULAR HEMOGLOBIN 30.4 PG (27.0-31.0); MEAN CORPUSCULAR HGB CONC 34.1 g/dL (33.0-36.5); MEAN CORPUSCULAR VOLUME 89.1 FL (78-98); MEAN PLATELET VOLUME 7.7 FL (7.4-10.4); MONOCYTES # (AUTO) 0.8 X10'3 (0-0.9); MONOCYTES % (AUTO) 11.7 % (2-12); NEUTROPHILS % (AUTO) 57.5 % (42-75); PLATELET COUNT 260 X10'3 (140-440); RED BLOOD COUNT 5.15 X10'6 (4.70-6.10); RED CELL DISTRIBUTION WIDTH 13.4 % (11.5-14.5); WHITE BLOOD COUNT 6.9 X10'3 (4.5-11.0)
[2024-07-21 22:19] LABS: ALANINE AMINOTRANSFERASE 49 U/L (12-78); ALBUMIN 3.2 G/DL (3.4-5.0); ALBUMIN/GLOBULIN RATIO 0.7 (1.1-1.5); ALKALINE PHOSPHATASE 122 IU/L (46-116); ANION GAP 8 (8-16); ASPARTATE AMINO TRANSFERASE 40 U/L (10-37); BILIRUBIN,TOTAL 0.6 MG/DL (0.1-1.0); BLOOD UREA NITROGEN 40 MG/DL (7-18); BUN/CREATININE RATIO 32.3 (10.0-20.0); CHLORIDE 100 MMOL/L (99-107); CREATININE 1.24 MG/DL (0.60-1.10); GLUCOSE 105 MG/DL (70-104); POTASSIUM 4.5 MMOL/L (3.5-5.1); SODIUM 132 MMOL/L (135-145); TOTAL CARBON DIOXIDE 24.2 MMOL/L (24-32); TOTAL PROTEIN 7.9 G/DL (6.4-8.2); eCRCL 58 ML/MIN; eGFR 70 ML/MIN
[2024-07-21 22:23] LABS: URIC ACID 6.8 MG/DL (3.5-7.2)
[2024-07-21 22:32] VITALS: RESP 16
[2024-07-21] MEDS: HYDROcodone/acetaminophen 5mg/325mg tablet PO ONE (22:32)
[2024-07-21] MEDS: ketorolac trometh 15mg/ml vial 15 MG/ML ML IM ONE (22:32)
[2024-07-21] MEDS ORDERED: INDO-12 PO (22:33)
[2024-07-21 22:40] VITALS: TEMP 98
== END 2024-07-21 22:43 | disposition home or self-care (01) ==
LOC: ER 18:33
DX: M10.9 Gout, unspecified (principal); I10 Essential (primary) hypertension; I25.10 Atherosclerotic heart disease of native coronary artery without angina pectoris; J44.9 Chronic obstructive pulmonary disease, unspecified; Z95.1 Presence of aortocoronary bypass graft; Z91.010 Allergy to peanuts; Z88.0 Allergy status to penicillin; Z98.890 Other specified postprocedural states; Z79.82 Long term (current) use of aspirin
CPT/HCPCS: 36415; 73630; 80053; 84550; 85025; 96372; 99284; J1885; 99283

== ENCOUNTER 2024-09-18 08:12 | Emergency (ER) | payer MEDICAID, MEDICARE ==
[~2024-09-18] VITALS: Ht 175.3 cm; Wt 76.3 kg
[~2024-09-18 08:12] MED LIST changes: -FURO40TA4 PO; +INDO-12 PO
[2024-09-18 08:16] VITALS: BP 128/85; PULSE 59; RESP 16; TEMP 97.6; O2SAT 95
[2024-09-18 08:51] LABS: BASOPHILS % (AUTO) 0.6 % (0-1); EOSINOPHILS # (AUTO) 0.1 X10'3 (0-0.9); EOSINOPHILS % (AUTO) 1.8 % (0-6); HEMATOCRIT 47.2 % (42.0-52.0); HEMOGLOBIN 16.1 g/dl (14.0-17.9); LYMPHOCYTES % (AUTO) 30.7 % (21-51); MEAN CORPUSCULAR HEMOGLOBIN 30.2 PG (27.0-31.0); MEAN CORPUSCULAR VOLUME 88.9 FL (78-98); MEAN PLATELET VOLUME 7.6 FL (7.4-10.4); MONOCYTES # (AUTO) 0.7 X10'3 (0-0.9); MONOCYTES % (AUTO) 11.4 % (2-12); NEUTROPHILS # (AUTO) 3.6 X10'3 (1.8-7.7); NEUTROPHILS % (AUTO) 55.5 % (42-75); PLATELET COUNT 256 X10'3 (140-440); RED BLOOD COUNT 5.32 X10'6 (4.70-6.10); RED CELL DISTRIBUTION WIDTH 14.1 % (11.5-14.5); WHITE BLOOD COUNT 6.5 X10'3 (4.5-11.0)
[2024-09-18 09:09] LABS: ALANINE AMINOTRANSFERASE 47 U/L (12-78); ALBUMIN 3.4 G/DL (3.4-5.0); ALBUMIN/GLOBULIN RATIO 0.7 (1.1-1.5); ALKALINE PHOSPHATASE 95 IU/L (46-116); ANION GAP 5 (8-16); ASPARTATE AMINO TRANSFERASE 43 U/L (10-37); BILIRUBIN,TOTAL 0.7 MG/DL (0.1-1.0); BLOOD UREA NITROGEN 19 MG/DL (7-18); BUN/CREATININE RATIO 15.6 (10.0-20.0); CALCIUM 8.8 MG/DL (8.5-10.1); CHLORIDE 101 MMOL/L (99-107); CREATININE 1.22 MG/DL (0.60-1.10); GLUCOSE 88 MG/DL (70-104); POTASSIUM 4.4 MMOL/L (3.5-5.1); SODIUM 136 MMOL/L (135-145); TOTAL CARBON DIOXIDE 30.2 MMOL/L (24-32); TOTAL PROTEIN 8.4 G/DL (6.4-8.2); eCRCL 58 ML/MIN; eGFR 71 ML/MIN
[2024-09-18 09:15] LABS: PRO BRAIN NATRIURETIC PEPTIDE 905 PG/ML (0-125)
== END 2024-09-18 12:49 | disposition left against medical advice (07) ==
LOC: ER 08:12
DX: R07.9 Chest pain, unspecified (principal); R42 Dizziness and giddiness; Z88.2 Allergy status to sulfonamides; Z91.010 Allergy to peanuts; Z53.21 Procedure and treatment not carried out due to patient leaving prior to being seen by health care provider
CPT/HCPCS: 36415; 71045; 80053; 83880; 84484; 85025; 93005

== ENCOUNTER 2024-12-09 07:35 | Emergency (ER) | payer MEDICARE ==
[~2024-12-09] VITALS: Ht 175.3 cm; Wt 75.0 kg
[2024-12-09 07:37] VITALS: TEMP 97.2
[2024-12-09 08:22] VITALS: BP 137/90; PULSE 93; RESP 22; O2SAT 94
--- NOTE | 2024-12-09 08:26 | Physician Documentation ---
History of Present Illness ~ Chief Complaint: Post-operative complication Stated Complaint: POST OP WOUND CHECK Time Seen by MD: 07:47 Primary Medical Doctor: [facility] HPI 69 year old male several days s/p AICD placement by Dr. Hernandez. Here for dressing change as dressing is saturated. Denies fevers, increasing pain at the incision site, shortness of breath, N/V/D. Tetanus within 5 years?: Yes Medication Reconciliation Allergies: Coded Allergies: Penicillins (Verified Allergy, Severe, 06/30/24) nut - unspecified (Verified Allergy, Unknown, 06/30/24) Scheduled Aspirin (Ecotrin*), 1 TAB PO Q24H Cimetidine (Tagamet), 1 TAB PO Q12H Empagliflozin (Jardiance), 10 MG PO DAILY Indomethacin (Indomethacin), 2 CAP PO Q8H Lisinopril (Lisinopril), 5 MG PO DAILY Metoprolol Succinate (Metoprolol Succinate), 1 TAB PO DAILY Spironolactone (Aldactone), 25 MG PO DAILY@0830 Past Medical History Past Medical History: Coronary Artery Disease, Heart Valve Disease, Hypertension, COPD, Cirrohsis Past Surgical History: angioplasty, coronary bypass surgery, heart valve surgery Patient History: FH: CABG (coronary artery bypass surgery) FATHER Smoking Status: Former smoker Review of Systems All Other Systems at this time: Reviewed and Negative Physical Exam Vital Signs: RN Vital Signs have been reviewed: Yes, Temperature: 97.2, Source: Temporal, Heart Rate: 109, Respiratory Rate: 15, BP: 152/99, Pulse Oximetry: 96, Weight: 75.000 Physical Exam HEENT: PERRL, moist oral mucosa, EOMI Pulmonary: No respiratory distress; CTAB; L chest wall incision site clean, dry, intact MSK: no deformity Skin: w/d/i, no rash Neuro: alert, nonfocal Psych: normal affect Progress Results/Orders Results/Orders Vital Signs 12/09/24 07:37 Temp 97.2 Pulse 109 Resp 15 B/P (MAP) 152/99 Pulse Ox 96 Medical Decision Making Findings 69 year old male with well-healing incision site for pacemaker placement. Changed dressing, patient has follow up appointment with Dr. Hernandez. Return precautions discussed and will send with dressing change materials. Differential Dx:Considerations: Include: Abscess, Cellulitis, Dressing change, Healing wound Departure Disposition: 01 HOME / SELF CARE / HOMELESS Impression: Primary Impression: Encounter for wound re-check Condition: Stable Referrals: NO PRIMARY CARE PROVIDER (PCP) Education Educated: Patient Educated regarding: diagnosis, treatment, prognosis, need for follow up Signature Scribe Signature: . Attestation: . JENNIFER STRONG MD Dec 09, 2024 08:25
== END 2024-12-09 08:38 | disposition home or self-care (01) ==
LOC: ER 07:36
DX: Z48.00 Encounter for change or removal of nonsurgical wound dressing (principal); I11.9 Hypertensive heart disease without heart failure; I25.10 Atherosclerotic heart disease of native coronary artery without angina pectoris; J44.9 Chronic obstructive pulmonary disease, unspecified; Z88.0 Allergy status to penicillin; Z88.8 Allergy status to other drugs, medicaments and biological substances; Z95.1 Presence of aortocoronary bypass graft; Z79.82 Long term (current) use of aspirin
CPT/HCPCS: 99281; A6258; A6402; A6449

== ENCOUNTER 2025-04-20 13:16 | Emergency (ER) | payer MEDICARE ==
[~2025-04-20] VITALS: Ht 175.3 cm; Wt 72.5 kg
[2025-04-20 13:25] VITALS: BP 109/75; PULSE 93; RESP 20; O2SAT 100
--- NOTE | 2025-04-20 14:51 | RADIOLOGY REPORT ---
DI SHOULDER, COMPLETE (MIN 2 V WS) INDICATION: RIGHT SHOULDER PAIN TECHNICAL DATA: 3 views were obtained of the left shoulder. COMPARISON: None FINDINGS: There is no fracture or focal bone abnormality. The glenohumeral joint is normally maintained. The ac romioclavicular joint appears degenerative. The humeral head is not high riding. Adjacent soft tissue s are within normal limits. Degenerative changes are noted involving the visualized spine. IMPRESSION: No acute fracture or dislocation of the left shoulder.
[2025-04-20] MEDS: ibuprofen tablet 400 MG TABLET PO ONE (14:56)
--- NOTE | 2025-04-20 15:00 | Physician Documentation ---
History of Present Illness ~ Chief Complaint: Shoulder pain Stated Complaint: R SHOULDER PAIN Time Seen by MD: 14:50 Primary Medical Doctor: Williams SUAREZ [facility] HPI This is a 69-year-old male who presents with right anterior shoulder pain onset last night, patient reports no known injury to the arm or shoulder, patient reports painful to move his arm. Patient reports no other acute symptoms or concerns. Tetanus within 5 years?: Yes Medication Reconciliation Allergies: Coded Allergies: Penicillins (Verified Allergy, Severe, 04/20/25) nut - unspecified (Verified Allergy, Unknown, 04/20/25) Scheduled Aspirin (Ecotrin*), 1 TAB PO Q24H Cimetidine (Tagamet), 1 TAB PO Q12H Empagliflozin (Jardiance), 10 MG PO DAILY Indomethacin (Indomethacin), 2 CAP PO Q8H Lisinopril (Lisinopril), 5 MG PO DAILY Metoprolol Succinate (Metoprolol Succinate), 1 TAB PO DAILY Spironolactone (Aldactone), 25 MG PO DAILY@0830 Past Medical History Past Medical History: Coronary Artery Disease, Heart Valve Disease, Hypertension, COPD, Cirrohsis Past Surgical History: angioplasty, coronary bypass surgery, heart valve surgery Patient History: FH: CABG (coronary artery bypass surgery) FATHER Review of Systems ROS As stated above in the HPI, otherwise all systems are reviewed and negative. Physical Exam Vital Signs: Temperature: 97.4, Source: Temporal, Heart Rate: 93, Respiratory Rate: 20, BP: 109/75, Pulse Oximetry: 100, Weight: 72.500 Oxygen Flow Rate: 0 Physical Exam VITALS: Reviewed and as above. GENERAL: Alert, nontoxic appearing, no apparent distress. RESPIRATORY: No increased work of breathing, no respiratory distress, speaking in full clear sentences CV: Brisk capillary refills of fingers of right hand MUSCULOSKELETAL: Tenderness to palpation right anterior shoulder, no tenderness to palpation of other aspects of right shoulder, pain elicited with passive and active ROM, no deformity or swelling of right shoulder, ROM of elbow wrist and hand is intact NEURO: Sensation intact to right hand and arm Progress Results/Orders Results/Orders Orders - CAROLINA ARROYO Shoulder, Complete (Min 2 Vws) (04/20/25 14:32) Ortho Orders (04/20/25 ) Completed Orders - CAROLINA ARROYO Shoulder, Complete (Min 2 Vws) (04/20/25 14:32) Ibuprofen Tablet (Motrin Tablet) (04/20/25 14:35) Vital Signs 04/20/25 04/20/25 13:25 15:12 Temp 97.4 97.4 Pulse 93 Resp 20 B/P (MAP) 109/75 Pulse Ox 100 O2 Flow Rate 0 EKG/XRAY/CT/US/VASC/MRI Bone/Soft Tissue X-Ray (Ext.) : Additional Comment Exam: SHOULDER, COMPLETE (MIN 2 VWS) DI SHOULDER, COMPLETE (MIN 2 V WS) INDICATION: RIGHT SHOULDER PAIN TECHNICAL DATA: 3 views were obtained of the left shoulder. COMPARISON: None FINDINGS: There is no fracture or focal bone abnormality. The glenohumeral joint is normally maintained. The acromioclavicular joint appears degenerative. The humeral head is not high riding. Adjacent soft tissues are within normal limits. Degenerative changes are noted involving the visualized spine. IMPRESSION: No acute fracture or dislocation of the left shoulder. Electronically Signed by:JEAN SUAZO MD Date & Time: 04/20/251448 Dictated by: JEAN SAUZO MD Dictation date and time: 04/20/251448 I have reviewed and agree with the radiology report. I have reviewed and interpreted the imaging as: No fracture or dislocation Medical Decision Making Findings This 69-year-old male presented with right anterior shoulder pain onset one day prior without known injury. On exam anterior shoulder was tender to palpation without deformity or swelling, pain was not severe. Pain elicited with passive and active ROM. Remainder of exam benign. Imaging did not demonstrate evidence of fracture or dislocation. Patient medicated for pain and placed in sling for comfort and discharged to follow up with PCP. Patient provided home care instructions, follow up instructions, and return to care precautions which he ve rbalized understanding of. Differential Dx:Considerations: Include: AC separation, Adhesive capsulitis, ar thritis, Bicipital tendonitis, Calcific tendonitis, Contusion, Dislocation, Fracture: Humerus, Fracture: Scapula, Fracture: Clavicle, Impingement syndrome, Neurovascular Injury, Rotator cuff injury, SC dislocation, Sprain, Subacromial bursitis, other (Septic joint) Departure Time of Disposition: 14:58 Disposition: 01 HOME / SELF CARE / HOMELESS Impression: Primary Impression: Shoulder pain Qualified Codes: M25.511 - Pain in right shoulder Condition: Improved Discharge Instructions: Shoulder Pain Additional Instructions: You may use ibuprofen and or Tylenol as directed by [id number] packaging as needed for pain. Please see the attached home care instructions for rest, ice, compression, and elevation treat your injury, use the provided sling as needed for pain relief. Please follow up with your primary care provider in the next few days. Please return to the emergency department for any new or worsening concerning symptoms. Referrals: NO PRIMARY CARE PROVIDER (PCP) Education Educated: Patient Educated regarding: diagnosis, treatment, prognosis, need for follow up Signature Scribe Signature: No Scribe Attestation: The note accurately reflects work and decisions made by me.KIRAN Vásquez 04/22/25 18:12 CAROLINA ARROYO Apr 20, 2025 15:00
[2025-04-20 15:12] VITALS: TEMP 97.4
== END 2025-04-20 15:14 | disposition home or self-care (01) ==
LOC: ER 13:17
DX: M25.511 Pain in right shoulder (principal); I10 Essential (primary) hypertension; I25.10 Atherosclerotic heart disease of native coronary artery without angina pectoris; J44.9 Chronic obstructive pulmonary disease, unspecified; Z88.0 Allergy status to penicillin; Z88.8 Allergy status to other drugs, medicaments and biological substances; Z91.018 Allergy to other foods; Z95.1 Presence of aortocoronary bypass graft; Z79.82 Long term (current) use of aspirin
CPT/HCPCS: 73030; 99283; A4565